=== PATIENT | male | born 1950 | race Caucasian/White ===

== ENCOUNTER → 2018-03-19 14:19 | Outpatient (CLI) | payer MEDICARE, OTHER ==
[2012-11-17 17:51] VITALS: BMI 39.0
[~2018-03-19 14:19] MED LIST: BACTRIM DS TABL1 TAB PO; CLARINEX-D 21 BOTTLE PO; COUMADIN5 MG PO; PRILOSEC20 MG PO; VOLTAREN100 GM TP
== END | disposition home or self-care (01) ==
LOC: D.CT 14:19
DX: R10.9 Unspecified abdominal pain (principal); K46.9 Unspecified abdominal hernia without obstruction or gangrene

== ENCOUNTER 2018-05-29 05:50 | Day surgery (SDC) | payer MEDICARE, OTHER ==
[2018-05-28 10:28] LABS: HEMATOCRIT 36.9 % (42.0-54.0); HEMOGLOBIN 12.3 g/dL (13.5-17.5); LYMPHOCYTES 30.6 % (15-50); MCH 27.9 pg (26.0-34.0); MCHC 33.3 g/dL (31.0-37.0); MCV 83.7 fL (80.0-100.0); MEAN PLATELET VOLUME 7.7 fL (7.4-10.4); NEUTROPHILS 57.8 % (40-80); PLATELET COUNT 265 10x3/uL (130-400); RBC 4.41 10x6/uL (4.20-6.10); RDW 12.9 % (11.5-14.5); WBC 4.4 10x3/uL (4.8-10.8)
[2018-05-28 10:38] LABS: ANION GAP 13.2 mmol/L (8-16); CALCIUM 8.5 mg/dL (8.5-10.1); CARBON DIOXIDE 27.3 mmol/L (21.0-32.0); CREATININE - SERUM 1.2 mg/dL (0.6-1.3); POTASSIUM - SERUM 4.5 mmol/L (3.5-5.1)
[~2018-05-29] VITALS: Ht 175.3 cm; Wt 136.5 kg
[~2018-05-29 05:50] MED LIST changes: +CLARITIN 10 MG10 MG PO; +OMEPRAZOLE40 MG PO; +VOLTAREN75 MG PO; +XALATAN 0.0052.5 ML EACH EYE
[2018-05-29 06:51] VITALS: BP 185/109; Ht 175.3 cm; Wt 136.5 kg
--- NOTE | 2018-05-29 08:54 | NUR ---
SCD'S NOT APPLIED, SKIN ON LOWER EXTREMITIES SHINY, RED, WITH OPEN SORES.
[2018-05-29] MEDS ORDERED: HYDROCODON-ACE1 EA10 PO (09:17)
--- NOTE | 2018-05-29 10:08 | NUR ---
0954 - PT RATES PAIN AT "6". PT PULSEOX 90-91 WITHOUT SUPPLEMENTAL, O2; D/C TO OUT PT PER ANESTHESIA
--- NOTE | 2018-05-29 10:55 | NUR ---
1035 BNC 2L/MIN SHANTANU'Amie
--- NOTE | 2018-05-29 11:11 | NUR ---
1005 PT HOLDING O2 SAT UP. PT ASKING FOR PAIN MEDICINE. STATES HIS PAIN IS STILL A 6.
--- NOTE | 2018-05-29 13:03 | NUR ---
1230 IV DC'D. CATHETER INTACT. NO BLEEDING AT SITE. BANDAID APPLIED.
--- NOTE | 2018-06-18 09:41 | OP ---
PATIENT NAME: NORMAN MONET MEDICAL RECORD: [id number] :50 LOCATION:[facility] ADMISSION DATE: SURGEON: CHRIS LAMBERT MD DATE OF OPERATION: 05/29/2018 PREOPERATIVE DIAGNOSES: 1. Recurrent ventral incisional hernia times 2. 2. Gastroesophageal reflux disease. 3. Morbid obesity with a body mass index of 44. POSTOPERATIVE DIAGNOSES: 1. Recurrent ventral incisional hernia times 2. 2. Gastroesophageal reflux disease. 3. Morbid obesity with a body mass index of 44. PROCEDURE: Ventral incisional hernia repair times 2 with 4.[address] mesh and 6.[address] mesh. SURGEON: Chris Lambert MD BOMB LOADER: Naty Kothari APRN REPORT OF PROCEDURE: The patient's abdomen was prepped and draped in sterile fashion. A longitudinal incision was made in the upper midline of the epigastrium overlying a small mass of tissue. Electrocautery was used to dissect through the subcutaneous tissue until we encountered a fat-containing hernia sac. This hernia sac was opened up and we were able to push this fatty content back into the abdominal cavity. There were actually 2 small hernia defects right next to each other and the bridge of fascia between these 2 were opened up. The total length of the hernia defect was about 1.5 cm. We freed up the fascia above and below. At this point, we inserted a 4.[address] mesh and sutured it down on all 4 sides using interrupted 0 Prolenes. The wound was then irrigated out with normal saline. We reapproximated the fascia transversely using running #1 PDS. We then approached the left lower quadrant where there was a large mass of tissue present. A transverse incision was made overlying this. Electrocautery was used to dissect through the subcutaneous tissue down to a fat-containing hernia sac. This hernia sac was opened up. We were eventually able to free up the hernia sac and then push the fatty contents back into the abdominal cavity. The hernia defect was about 3.5 cm in greatest diameter. We freed up the fascia above and below. We then inserted a 6.[address] mesh in an underlay fashion and sutured it down on all 4 sides using interrupted 0 Prolenes. We irrigated out the wound with normal saline and then closed the fascia transversely using a running #1 loop PDS. The wound was irrigated one last time and care was taken to assure there was no sign of any bleeding. At this point, subcutaneous tissues were reapproximated with interrupted 3-0 Vicryls and the skin incisions were closed with running subcutaneous 5-0 Monocryl. A total of 20 mL of 0.25% Marcaine with epinephrine was infused into the surrounding tissues. The wounds were dressed appropriately. COMPLICATIONS: None. CONDITION: Stable. ANESTHESIA: General endotracheal and local. OPERATIVE REPORT [id number] NORMAN MONET BLOOD LOSS: Minimal. TRANSINT:[id number] Voice Confirmation ID: [id number] DOCUMENT ID: [id number] CHRIS LAMBERT MD at 0941 CC: VANESA FUNEZ [id number] DICTATION DATE: 05/29/18921 NEWSPAPER CORRESPONDENT: 05/29/18 1117 [facility] 05/29/18 [facility] [address] [place] [address]
== END 2018-05-29 12:52 | disposition home or self-care (01) ==
LOC: D.OPS 05:50 → D.PAN 08:00 → D.OPS 08:00
PROVIDERS: Surgery
DX: K43.2 Incisional hernia without obstruction or gangrene (principal); K21.9 Gastro-esophageal reflux disease without esophagitis; E66.01 Morbid (severe) obesity due to excess calories; Z68.41 Body mass index [BMI] 40.0-44.9, adult; Z01.812 Encounter for preprocedural laboratory examination

== ENCOUNTER → 2018-09-01 07:30 | Outpatient (CLI) | payer MEDICARE, OTHER ==
[2018-05-29 06:51] VITALS: BMI 44.5
[~2018-09-01 07:30] MED LIST changes: +HYDROCODON-ACE1 EA10 PO
== END | disposition home or self-care (01) ==
LOC: D.NM 07:30
PROVIDERS: ATTEND Nurse Practitioner Family
DX: Z96.651 Presence of right artificial knee joint (principal)

== ENCOUNTER → 2018-09-03 16:35 | Outpatient (CLI) | payer MEDICARE, OTHER ==
[2018-05-29 06:51] VITALS: BMI 44.5
[2018-09-03 18:52] LABS: BASOPHILS 0.3 % (0-2); EOSINOPHILS 2.1 % (0-7); HEMATOCRIT 36.8 % (42.0-54.0); HEMOGLOBIN 12.2 g/dL (13.5-17.5); IMMATURE GRANULOCYTES 0.3 % (0-5); LYMPHOCYTES 23.4 % (15-50); MCH 27.4 pg (26.0-34.0); MCHC 33.2 g/dL (31.0-37.0); MCV 82.5 fL (80.0-100.0); MONOCYTES 8.8 % (2-11); NEUTROPHILS 65.1 % (40-80); RBC 4.46 10x6/uL (4.20-6.10); WBC 6.3 10x3/uL (4.8-10.8)
[2018-09-03 18:54] LABS: PLATELET COUNT 350 10x3/uL (130-400)
[2018-09-03 20:07] LABS: ERYTHROCYTE SEDIMENTATION RATE 62 mm/hr (0-20)
== END | disposition home or self-care (01) ==
LOC: D.LABREF 16:35
PROVIDERS: ATTEND Orthopaedic Surgery
DX: M25.561 Pain in right knee (principal)

== ENCOUNTER → 2018-09-07 07:09 | Outpatient (CLI) | payer MEDICARE, OTHER ==
[2018-05-29 06:51] VITALS: BMI 44.5
--- NOTE | ~2018-09-07 | HEMODYNAMI ---
PATIENT:NORMAN MONET MEDICAL RECORD: [id number] : 50 LOCATION:[facility] ADMISSION DATE: 09/07/18 Generatedon:09/07/20188:35 Patient name: NORMAN MONET Patient #: [id number] SSN: B: 1950 Date of study: 09/07/2018 Page: Of Hemodynamic Procedure Report Patient Data Patient Demographics Procedure consent was obtained First Name: NORMAN Gender: Male Last Name: TIERNEY : 1950 [facility] Initial: A Age: 68 year(s) Patient #: [id number] Race: Unknown Additional ID: [id number] Contact details Address: [address] [place] [place] [address] State: [place] City: [place] Zip code: [address] Past Medical History Allergies Allergen Reaction Date Comments Reported Other allergy 09/07/2018 latex, natural rubber Admission Admission Data Admission Date: 09/07/2018 Admission Time: 7:09 Procedure Procedure Types Cath Procedure Peripheral Cath Diagnostic Procedure Miscellaneous Aspiration/Injection (Joint) Procedure Description Procedure Date Procedure Date: 09/07/2018 Procedure Start Time: 8:21 Procedure Staff Name Function David Martin RT Scrub Johny Jensen MD Performing Physician Yi Mckenzie RN Nurse Darline Pringle RN Nurse SHAMIKA DENNIS RT Monitor Procedure Data Cath Procedure Fluoroscopy Diagnostic fluoroscopy Total fluoroscopy Time: 0.1 time: 0.1 min min Diagnostic fluoroscopy Total fluoroscopy dose: 1 dose: 1 mGy mGy Hemodynamics Rest Pre Cath Intra NCS Post Cath Procedure Log Time Note 8:12:15 SHAMIKA DENNIS RT (R) sent for patient. Start room use. 8:12:17 Time tracking: Regular hours (M-F 7:00 - 5:00) 8:12:25 Patient received from Outpatients to IR Alert and oriented. Tansferred to table in Supine position. 8:12:30 Correct patient and procedure confirmed by team. 8:12:32 Signed procedure consent form obtained from patient. 8:12:34 8:13:32 Pre-procedure instructions explained to patient. 8:14:09 Patient allergic to Other allergylatex, natural rubber 8:20:21 --------ALL STOP TIME OUT------ 8:20:21 Physician arrived 8:20:22 Final Timeout: patient, procedure, and site verified with staff and physician. All members of the team are in agreement. 8:20:32 Right knee site verified by team. 8:20:38 Sedation plan: Local Anesthetic Medication:Lidocaine 8:20:56 Full Disclosure recording started 8:20:56 Procedure started. 8:21:22 Local anesthetic to Right Knee with Lidocaine 1% by Johny Jensen MD.INITIAL ACCESS ONLY 8:21:25 SAFE-T PLUS MYELOGRAM TRAY opened to sterile field. 8:26:30 Procedure ended.(Physican Out) 8:26:46 Fluoroscopy time 00.10 minutes. 8:26:50 Fluoroscopy dose: 1 mGy 8:26:50 Flurop Dose total: 1 8:30:27 Insertion/operative site no bleeding no hematoma. 8:31:01 BANDAIDE APPLIED AND PT SENT HOME FLUID COLLECTED AND SENT TO LAB 8:32:06 Full Disclosure recording stopped Device Usage Item Name Manufacture Quantity Catalog Hospital Part Current Minimal Lot# / Number Charge Number Stock Stock Serial# Code SAFE-T CareFusion 1 [id number] PLUS MYELOGRAM TRAY Signature Audit [place] Stage Time Signature Unsigned Intra-Procedure 09/07/2018 David 8:35:07 AM Veronica RT (R) (CV) Signatures Monitor : SHAMIKA DENNIS RT Signature : Date : Time : [facility] [address] [place], [place] [id number]
[2018-09-07 09:13] LABS: PROTEIN - BODY FLUID 6.1 G/DL
[2018-09-07 10:07] LABS: NEUT - BF 93 %
== END | disposition home or self-care (01) ==
LOC: D.RAD 07:09
PROVIDERS: ATTEND Orthopaedic Surgery
DX: M25.561 Pain in right knee (principal)

== ENCOUNTER → 2018-09-11 11:07 | Outpatient (CLI) | payer MEDICARE, OTHER ==
[2018-05-29 06:51] VITALS: BMI 44.5
== END | disposition home or self-care (01) ==
LOC: D.LABREF 11:07
PROVIDERS: ATTEND Orthopaedic Surgery
DX: M17.11 Unilateral primary osteoarthritis, right knee (principal); Z11.8 Encounter for screening for other infectious and parasitic diseases

== ENCOUNTER 2018-09-11 12:53 | Inpatient (IN) | payer MEDICARE, OTHER ==
--- NOTE | ~2018-09-11 | HEMODYNAMI ---
PATIENT:NORMAN MONET MEDICAL RECORD: [id number] : 50 LOCATION:[facility] ADMISSION DATE: 09/22/18 Generatedon:09/16/201813:51 Patient name: NORMAN MONET Patient #: [id number] SSN: B: 1950 Date of study: 09/16/2018 Page: Of Hemodynamic Procedure Report Patient Data Patient Demographics Procedure consent was obtained First Name: NORMAN Gender: Male Last Name: TIERNEY : 1950 [facility] Initial: A Age: 68 year(s) Patient #: [id number] Race: Unknown Additional ID: [id number] Contact details Address: [address] [place] [address] State: [place] City: [place] Zip code: [address] Past Medical History Allergies Allergen Reaction Date Comments Reported Other allergy 09/07/2018 latex, natural rubber Other allergy 09/16/2018 LATEX Admission Admission Data Admission Date: 09/22/2018 Admission Time: 10:00 Procedure Procedure Types Cath Procedure Peripheral Cath Diagnostic Procedure Miscellaneous Aspiration/Injection (Joint) Procedure Description Procedure Date Procedure Date: 09/16/2018 Procedure Start Time: 13:40 Procedure Staff Name Function Johny Jensen MD Performing Physician David Martin RT Monitor Darline Pringle RN Nurse Procedure Data Cath Procedure Fluoroscopy Diagnostic fluoroscopy Total fluoroscopy Time: 0.1 time: 0.1 min min Diagnostic fluoroscopy Total fluoroscopy dose: 1 dose: 1 mGy mGy Hemodynamics Rest Pre Cath Intra NCS Post Cath Procedure Log Time Note 13:33:10 David Martin RT (R) (CV) sent for patient. Start room use. 13:33:14 Time tracking: Regular hours (M-F 7:00 - 5:00) 13:33:20 Patient received from Outpatients to IR Alert and oriented. Tansferred to table in Supine position. 13:33:21 Correct patient and procedure confirmed by team. 13:33:23 Signed procedure consent form obtained from patient. 13:33:24 ECG and BP/O2 sat monitors applied to patient. 13:33:25 Full Disclosure recording started 13:33:26 - 13:33:33 Pre-procedure instructions explained to patient. 13:33:33 Pre-op teaching completed and patient verbalized understanding. 13:33:35 Family in waiting room. 13:33:57 Patient allergic to Other allergyLATEX 13:34:03 Is patient on blood thinner?No 13:38:36 Right Knee was prepped with betadine and draped in sterile fashion. 13:40:09 Physician arrived 13:40:09 --------ALL STOP TIME OUT------ 13:40:13 Final Timeout: patient, procedure, and site verified with staff and physician. All members of the team are in agreement. 13:40:23 Right KNEE site verified by team. 13:40:45 Sedation plan: Local Anesthetic Medication:Lidocaine 13:40:53 Procedure started. 13:40:59 Local anesthetic to Right Knee with Lidocaine 1% by Johny Jensen MD.INITIAL ACCESS ONLY 13:49:04 Procedure ended.(Physican Out) 13:49:45 SAFE-T PLUS MYELOGRAM TRAY opened to sterile field. 13:50:19 Fluoroscopy time 00.10 minutes. 13:50:21 Fluoroscopy dose: 1 mGy 13:50:21 Flurop Dose total: 1 13:50:58 BANDAIDE APPLIED SITE STABLE FLUID SENT COLLECTED AND SENT TO LAB Device Usage Item Name Manufacture Quantity Catalog Hospital Part Current Minimal Lot# / Number Charge Number Stock Stock Serial# Code SAFE-T CareFusion 1 [id number] PLUS MYELOGRAM TRAY Signature Audit [place] Stage Time Signature Unsigned Intra-Procedure 09/16/2018 David 1:51:23 PM Veronica RT (R) (CV) Signatures Monitor : David Signature : Veronica RT Date : Time : [facility] [address] [place] [address]
[2018-09-17] MEDS ORDERED: LISINOPRIL10 MG PO (09:59)
[2018-09-17 11:14] LABS: ANION GAP 11.4 mmol/L (8-16); CALCIUM 9.3 mg/dL (8.5-10.1); CARBON DIOXIDE 28.7 mmol/L (21.0-32.0); CREATININE - SERUM 1.4 mg/dL (0.6-1.3); POTASSIUM - SERUM 4.1 mmol/L (3.5-5.1)
[2018-09-17 11:21] LABS: BASOPHILS 0.3 % (0-2); EOSINOPHILS 1.7 % (0-7); HEMATOCRIT 37.5 % (42.0-54.0); HEMOGLOBIN 12.3 g/dL (13.5-17.5); IMMATURE GRANULOCYTES 0.1 % (0-5); LYMPHOCYTES 26.5 % (15-50); MCH 27.5 pg (26.0-34.0); MCHC 32.8 g/dL (31.0-37.0); MCV 83.7 fL (80.0-100.0); MEAN PLATELET VOLUME 8.7 fL (7.4-10.4); MONOCYTES 7.5 % (2-11); NEUTROPHILS 63.9 % (40-80); PLATELET COUNT 287 10x3/uL (130-400); RBC 4.48 10x6/uL (4.20-6.10); RDW 14.4 % (11.5-14.5)
[2018-09-17 11:23] LABS: APTT 31.2 SECONDS (22.8-39.4); INR 1.12 (0.85-1.17); PROTIME 13.9 SECONDS (11.6-15.0)
[2018-09-17 11:38] LABS: APPEARANCE CLEAR (CLEAR); BILIRUBIN NEGATIVE (NEGATIVE); COLOR YELLOW (YELLOW); GLUCOSE 50 mg/dL (NEGATIVE); KETONE NEGATIVE (NEGATIVE); NITRITE NEGATIVE (NEGATIVE); PROTEIN NEGATIVE (NEGATIVE); SPECIFIC GRAVITY 1.015 (1.005-1.020); UROBILINOGEN NORMAL (NORMAL)
[2018-09-22 12:23] VITALS: BP 148/71
[2018-09-23] VITALS (7 sets, daily range): BP systolic 119–143; BP diastolic 50–72
--- NOTE | 2018-09-23 04:20 | NUR ---
I have reviewed this patient and I concur with the Shift Assessment completed by the Licensed Practical Nurse today this shift.
[2018-09-23 06:43] LABS: HEMATOCRIT 30.8 % (42.0-54.0); HEMOGLOBIN 10.5 g/dL (13.5-17.5); MCH 28.5 pg (26.0-34.0); MCHC 34.1 g/dL (31.0-37.0); MCV 83.5 fL (80.0-100.0); MEAN PLATELET VOLUME 8.9 fL (7.4-10.4); RBC 3.69 10x6/uL (4.20-6.10); RDW 14.6 % (11.5-14.5)
[2018-09-23 07:50] LABS: ANION GAP 12.8 mmol/L (8-16); CALCIUM 8.5 mg/dL (8.5-10.1); CARBON DIOXIDE 25.8 mmol/L (21.0-32.0); CREATININE - SERUM 1.4 mg/dL (0.6-1.3); POTASSIUM - SERUM 4.6 mmol/L (3.5-5.1)
--- NOTE | 2018-09-23 08:48 | OP ---
PATIENT NAME: NORMAN MONET MEDICAL RECORD: [id number] :50 LOCATION: D.2224 ADMISSION DATE:09/22/18 SURGEON: JOHNY STONE DO DATE OF OPERATION: 09/22/2018 PROCEDURE PERFORMED: Right knee explant of total knee with irrigation, debridement and placement of antibiotic spacer. PREOPERATIVE DIAGNOSIS: Chronic infected right total knee. POSTOPERATIVE DIAGNOSIS: Chronic infected right total knee. INDICATIONS: Mr. Monet is a 68-year-old male who had a total knee done approximately 13 years ago after having a severe tibial plateau fracture. He said he has been having pain ever since and never really went away. He was worked up for infection as ESR and CRP were elevated and got an aspirate of his knee, which grew out Staph hominis. We repeated just to be sure and then he grew out Staph the same bug, the second time. Knowing that knowing how long it had been in, I had a discussion with him saying we could play it safe and do a two stage or a single stage will be more risky. He said it is left to me, so I decided to do a two stage revision on him due to the chronicity of the infection. He was okay with that plan. He was aware of the need for IV antibiotics and also the revision, possibly in 6 weeks after an aspirate done being off antibiotics. He was aware of all those things as well as the risk of blood clots, and even and signed the consent. SURGEON: Johny Stone DO DESCRIPTION OF THE PROCEDURE: The patient was given a block by anesthesia in the preoperative area. He taken to the operative suite, laid in supine position. Right lower extremity was prepped and draped in sterile fashion. Timeout was performed, everyone was in agreeance of the correct side, site, patient and procedure. Incision then marked out over the old incision over the medial aspect of the knee and curved superior and inferior. The timeout had been performed. Everyone was in agreeance of the correct side, site, patient and procedure and then the incision was marked out and covered in Ioban. Incision was then made with a 10 blade scalpel down to the capsule. Capsule was cleared off and then a medial parapatellar approach was used and this was opened up as soon as the capsule was entered. Purulent fluid came out of the knee. This was cultured with 3 different sets of cultures. The knee capsule was then opened and the poly was taken out. The medial gutter was then established taking out some synovium and the femur was exposed more. The lateral gutter was then established taking out synovium. Then, a flexible osteotome was used around the femur to loosen it and it was removed. The same process was done with the tibia and it was removed. Excess cement was removed and then the poly on the patella was removed as well and Bactisure was then used to irrigate the knee and then 3 liters normal saline was used and then another 2 liters normal saline after that towards the end of procedure. The antibiotic spacer was then molded for the tibia and that the femur was initially used. Tibia was then molded and the femur was initially size as a 7, it was just too big, so that the mold was bumped down to a 65. We used the cement with tobramycin and vancomycin powder and the cement on both the femur and the tibia. Once we got the right molds, this was placed on the knee. Knee was placed in extension. The knee was thoroughly irrigated and the capsule was closed with #2 Ethibond in ldfbon-hx-xupjj fashion and the skin was closed with 2-0 Vicryl in an inverted OPERATIVE REPORT [id number] TIERNEY,NORMAN A interrupted fashion and then a ZipLine was placed on the knee. Adaptic, 4 x 4s, ABD, Webril and Pradip wrap were then placed on the knee. CARA hose stocking placed up to the knee. The patient was then placed in knee immobilizer and taken to recovery in stable condition. Blood loss was approximately 200 mL. COMPLICATIONS: None. TRANSINT:[id number] Voice Confirmation ID: [id number] DOCUMENT ID: [id number] JOHNY STONE DO at 0848 CC: [id number] DICTATION DATE: 09/22/181841 HEEL CEMENTER MACHINE: 09/22/182213 [facility] [address] [place] [address]
[2018-09-23 12:29] LABS: % SATURATION 11 % (15-55); IRON 24 ug/dl (35-150); TOTAL IRON BIND CAPACITY 212 ug/dl (260-445); UNSAT IRON BIND CAPACITY 188 ug/dl (150-375)
--- NOTE | 2018-09-23 15:40 | MORECARE ---
CASE MANAGEMENT DISCHARGE SUMMARY PATIENT: NORMAN MONET UNIT: [id number] ADM DATE: 09/22/18 AGE: 68 : 50 SEX: M ROOM/BED: D.2224 AUTHOR: BILL RODRIGUEZ PHYSICIAN: REFERRING PHYSICIAN: SHAGGY STONE DO DATE OF SERVICE: 09/23/18 Discharge Plan Patient Name: NORMAN MONET [facility] [facility] 1950 Planned Disposition: Custodial Facility Anticipated Discharge Date: Discharge Date: Expected LOS: Initial Reviewer: [email or web address] Initial Review Date: 09/23/2018 Generated: 09/23/18 4:40 pm External Providers External Provider: [facility] Next Contact Date: Service Request Date: Service Type: Resolution: Reviewer: Comments: Patient Name: NORMAN MONET Page [phone] at 1540 All edits/amendments must be made on the electronic document DICTATION DATE: 09/23/18 1540 FOLDER OPERATOR: MIQUEL 09/23/18 1540 RPT#: [id number] DC DATE: STATUS: ADM IN [facility] [address] [place] [address] END OF REPORT
--- NOTE | 2018-09-23 15:49 | MORECARE ---
CASE MANAGEMENT DISCHARGE SUMMARY PATIENT: NORMAN MONET UNIT: [id number] ADM DATE: 09/22/18 AGE: 68 : 50 SEX: M ROOM/BED: D.2224 AUTHOR: JENNIFER,DOC PHYSICIAN: REFERRING PHYSICIAN: SHAGGY STONE DO DATE OF SERVICE: 09/23/18 Discharge Plan Patient Name: NORMAN MONET Facility: [facility]:[place] : 1950 Planned Disposition: [facility] Facility Anticipated Discharge Date: Discharge Date: Expected LOS: Initial Reviewer: [email or web address] Initial Review Date: 09/23/2018 Generated: 09/23/18 4:49 pm Comments DCP- Discharge Planning Updated by [id number]: Mary Kate Almaraz on 09/23/18 2:[address] Patient Name: NORMAN MONET Admission Status: Elective Accout number: [id number] Admission Date: 09-22-2018 : 1950 Admission Diagnosis: Attending: SHAGGY STONE Current LOS: 1 Anticipated DC Date: Planned Disposition: [facility] Facility Primary Insurance: MEDICARE A & B Discharge Planning Comments: CM met with patient to discuss discharge planning/needs, he is alone in the room. He lives with his in a one story home. He states that he no longer can drive because of his knee. He will need IV antibiotics at home for an extended period of time. He does not have a prescription plan. He states he uses [facility] to get his medications for economical reasons. I discussed the availability of inpatient rehab, SNF and home health. I did inform him that I could holt the antibiotics from an infusion company before he makes a decision and he states "no, I can't afford it." He states [facility] YOJANA signed. I called Maria De Jesus at [facility] and clinical faxed. CM will continue to follow and assist with discharge planning/needs. Cyber Threat Analyst: Mary Kate Almaraz DCPIA - Discharge Planning Initial Assessment Updated by [email or web address]: Mary Kate Almaraz on 09/23/18 3:41 pm * Is the patient Alert and Oriented? Yes * How many steps to enter\\exit or inside your home? 0/0 * PCP Dr. Landon * Pharmacy [facility] * Preadmission Environment Home with Family * ADLs Partial Dependent * Partial ADLs (Assistance needed) Ambulation * Equipment Bedside Commode Crutch Walker * Other Equipment Has a CPM, but states they are going to take it back since he can not use it at this time. * List name and contact numbers for known caregivers / representatives who currently or will assist patient after discharge: Roxanne Monet - spouse - [phone] * Verbal permission to speak to the caregivers and representatives has been obtained from the patient. Yes * Community resources currently utilized None * Additional services required to return to the preadmission environment? Yes * Can the patient safely return to the preadmission environment? Yes * Has this patient been hospitalized within the prior 30 days at any hospital? No Coverage Notice Reviewer: [email or web address] Barrie Almaraz Notice Issued Date-Time: 09/23/2018 15:47 Notice Type: Patient Choice Letter Notice Delivered To: Patient Relationship to Patient: Lease Examiner Name: Delivery Method: HAND - Hand Delivered Dee Days: Prior Verbal Notification: Recipient Understood Notice: Yes Recipient Signature: Yes Med Rec Note Co-signed by Attending: Coverage Notice Comment: YOJANA for [facility] Last DP export: 09/23/18 2:40 pm Patient Name: NORMAN MONET Page [id number] at 1549 All edits/amendments must be made on the electronic document DICTATION DATE: 09/23/188 BULK TANK DRIVER: MIQUEL 09/23/18 1548 RPT#: [id number] DC DATE: STATUS: ADM IN [facility] [address] [place] [address] END OF REPORT
[2018-09-24 03:15] VITALS: BP 141/72
[2018-09-24 04:00] VITALS: BP 152/72
[2018-09-24 04:22] LABS: BASOPHILS 0.1 % (0-2); EOSINOPHILS 0.3 % (0-7); HEMOGLOBIN 9.2 g/dL (13.5-17.5); IMMATURE GRANULOCYTES 0.3 % (0-5); LYMPHOCYTES 16.5 % (15-50); MCH 27.1 pg (26.0-34.0); MCHC 32.9 g/dL (31.0-37.0); MCV 82.6 fL (80.0-100.0); MEAN PLATELET VOLUME 8.6 fL (7.4-10.4); MONOCYTES 14.5 % (2-11); NEUTROPHILS 68.3 % (40-80); PLATELET COUNT 239 10x3/uL (130-400); RBC 3.39 10x6/uL (4.20-6.10); RDW 14.6 % (11.5-14.5); WBC 7.8 10x3/uL (4.8-10.8)
[2018-09-24 04:32] LABS: ANION GAP 11.4 mmol/L (8-16); C-REACTIVE PROTEIN 29.5 mg/dL (0.0-0.9); CALCIUM 8.5 mg/dL (8.5-10.1); CARBON DIOXIDE 26.6 mmol/L (21.0-32.0); CREATININE - SERUM 1.1 mg/dL (0.6-1.3)
[2018-09-24 05:16] LABS: ERYTHROCYTE SEDIMENTATION RATE 48 mm/hr (0-20)
--- NOTE | 2018-09-24 05:38 | NUR ---
I have reviewed this patient and I concur with the Shift Assessment completed by the Licensed Practical Nurse today this shift.
--- NOTE | 2018-09-24 07:50 | NUR ---
PT RESTING IN BED. NO ACUTE DISTRESS NOTED. REPORTS PAIN 10/10 TO RIGHT LOWER EXTREMITY. DRESSING INTACT, WITH LEG IMMOBILIZER IN PLACE. PAIN MEDICATIONS TO BE ADMINITERED PER MD ORDERS. IV TO LEFT FOREARM WITH 1/2 NS @ 50ML/HR INFUSING VIA PUMP. SITE WITHOUT REDNESS OR EDEMA. DENIES FURTHER NEEDS AT THIS TIME. CL WITHIN REACH. ENCOURAGED TO CALL WITH NEEDS. CONTINUE POC
--- NOTE | 2018-09-24 08:25 | NUR ---
URINE SPECIMEN OBTAINED AND TAKEN TO LAB
[2018-09-24 09:05] LABS: APPEARANCE CLEAR (CLEAR); BILIRUBIN NEGATIVE (NEGATIVE); COLOR DK YELLOW (YELLOW); GLUCOSE 100 mg/dL (NEGATIVE); KETONE NEGATIVE (NEGATIVE); NITRITE NEGATIVE (NEGATIVE); PROTEIN TRACE mg/dL (NEGATIVE); SPECIFIC GRAVITY 1.015 (1.005-1.020)
[2018-09-24 09:06] LABS: AMORPHOUS SEDIMENT <1+ /lpf (NONE SEEN); BACTERIA FEW /hpf (NONE SEEN); EPITHELIAL CELLS RARE /hpf (0-5); GRANULAR CAST RARE /lpf (NONE SEEN); MUCUS <1+ /lpf (NONE SEEN); RED CELLS - URINE NONE SEEN /hpf (0-5); WHITE CELLS - URINE NSEEN /hpf (0-5)
[2018-09-24 09:29] VITALS: BP 138/67
[2018-09-24 13:35] VITALS: BP 111/60
[2018-09-24 18:07] VITALS: BP 126/62
--- NOTE | 2018-09-24 19:00 | NUR ---
REPORT RECEIVED AND CARE OF PT ASSUMED. PT LYING IN HIGH DURÁN'S POSITION WATCHING TV. LEFT PICC LINE PATENT WITH 1/2 NS INFUSING AT 50 ML/HR. REMOVED PERIPHERAL IV TO LEFT AC PER PT REQUEST WITH CATHETER TIP INTACT. WILL MONITOR FOR NEEDS.
[2018-09-24 20:00] VITALS: BP 92/62
--- NOTE | 2018-09-24 20:17 | NUR ---
HS MEDICATIONS GIVEN TO INCLUDE OXY 10 PO, TORADOL IVP AND VISTARIL PER PRN ORDERS FOR PAIN / SLEEP. WILL MONITOR FOR EFFECTIVENESS.
--- NOTE | 2018-09-24 22:50 | NUR ---
COLLECTED URINE FOR CULTURE AND DELIVERED TO LAB.
--- NOTE | 2018-09-24 23:39 | NUR ---
PT RESTING QUIETLY IN MID DURÁN'S POSITION WITH EYES CLOSED AND EASY RESPIRATIONS. WILL CONTINUE TO MONITOR FOR NEEDS.
[2018-09-25] VITALS: BP 113/62
--- NOTE | 2018-09-25 03:49 | NUR ---
GAVE OXY 10 PO AND VISTARIL 50 PO FOR C/O PAIN AT LEVEL 6/10. WILL MONITOR FOR EFFECTIVENESS.
[2018-09-25 04:00] VITALS: BP 127/68
[2018-09-25 06:13] LABS: FOLATE (FOLIC ACID) - SERUM 5.4 ng/mL (>3.0)
[2018-09-25 07:00] LABS: ANION GAP 10.9 mmol/L (8-16); CALCIUM 8.1 mg/dL (8.5-10.1); CARBON DIOXIDE 26.8 mmol/L (21.0-32.0); CREATININE - SERUM 1.2 mg/dL (0.6-1.3); POTASSIUM - SERUM 3.7 mmol/L (3.5-5.1)
[2018-09-25 07:06] LABS: BASOPHILS 0.3 % (0-2); EOSINOPHILS 1.8 % (0-7); HEMATOCRIT 26.2 % (42.0-54.0); HEMOGLOBIN 8.5 g/dL (13.5-17.5); IMMATURE GRANULOCYTES 0.3 % (0-5); LYMPHOCYTES 21.9 % (15-50); MCH 27.2 pg (26.0-34.0); MCHC 32.4 g/dL (31.0-37.0); MONOCYTES 14.9 % (2-11); NEUTROPHILS 60.8 % (40-80); PLATELET COUNT 247 10x3/uL (130-400); RBC 3.12 10x6/uL (4.20-6.10); RDW 14.7 % (11.5-14.5); WBC 7.1 10x3/uL (4.8-10.8)
--- NOTE | 2018-09-25 08:30 | NUR ---
ASSESSMENT COMPLETE, VS STABLE. NO COMPLAINTS OR SIGNS OF DISTRESS. CALL LIGHT WITHIN REACH.
[2018-09-25 09:39] VITALS: BP 129/64
[2018-09-25 13:32] VITALS: BP 130/64
--- NOTE | 2018-09-25 17:00 | NUR ---
PATIENT STOOL SAMPLE SENT TO LAB AT THIS TIME.
[2018-09-25 17:07] VITALS: BP 128/62
--- NOTE | 2018-09-25 18:45 | NUR ---
PATIENT IN BED WITH IV INTACT. NO COMPLAINTS OR SIGNS OF DISTRESS. CALL LIGHT WITHIN REACH.
--- NOTE | 2018-09-25 19:00 | NUR ---
REPORT RECEIVED AND CARE OF PT ASSUMED. LEFT PICC LINE PATENT WITH 1/2 NS INFUSING AT 50 ML / HR. RIGHT LEG IMMOBILIZER IN PLACE. WILL MONITOR FOR NEEDS.
[2018-09-25 19:58] VITALS: BP 120/60
--- NOTE | 2018-09-25 21:00 | NUR ---
ASSISTED UP TO BSC TO HAVE LARGE BM. PT PIVOTS WELL ON LEFT LEG TO PREVENT WT BEARING ON RIGHT LEG. POSITIONED BACK IN BED FOR COMFORT.
--- NOTE | 2018-09-25 21:12 | NUR ---
HS MEDICATIONS GIVEN TO INCLUDE TORADOL AND BENADRYL FOR PAIN AND SLEEP. WILL MONITOR FOR EFFECTIVENESS.
[2018-09-26] VITALS: BP 116/57
--- NOTE | 2018-09-26 01:30 | NUR ---
GAVE OXY 10 PO AND VISTARIL 50 MG PO FOR C/O PAIN AT LEVEL 7/10. WILL MONITOR FOR EFFECTIVENESS.
--- NOTE | 2018-09-26 01:30 | NUR ---
CHANGED ALL IV TUBING AND LABELED WITH NEXT CHANGE DATE.
[2018-09-26 04:00] VITALS: BP 114/53
[2018-09-26 05:30] LABS: BASOPHILS 0.3 % (0-2); EOSINOPHILS 2.6 % (0-7); HEMATOCRIT 24.2 % (42.0-54.0); HEMOGLOBIN 7.9 g/dL (13.5-17.5); IMMATURE GRANULOCYTES 0.3 % (0-5); LYMPHOCYTES 25.4 % (15-50); MCH 27.1 pg (26.0-34.0); MCHC 32.6 g/dL (31.0-37.0); MCV 83.2 fL (80.0-100.0); MEAN PLATELET VOLUME 8.6 fL (7.4-10.4); MONOCYTES 12.9 % (2-11); NEUTROPHILS 58.5 % (40-80); PLATELET COUNT 266 10x3/uL (130-400); RBC 2.91 10x6/uL (4.20-6.10); RDW 14.5 % (11.5-14.5); WBC 6.8 10x3/uL (4.8-10.8)
[2018-09-26 05:53] LABS: ANION GAP 10.7 mmol/L (8-16); CALCIUM 8.1 mg/dL (8.5-10.1); CARBON DIOXIDE 26.1 mmol/L (21.0-32.0); CREATININE - SERUM 1.3 mg/dL (0.6-1.3); POTASSIUM - SERUM 3.8 mmol/L (3.5-5.1)
--- NOTE | 2018-09-26 08:00 | NUR ---
ASSESSMENT PER FLOW SHEET. PT IS WITHOUT DISTRESS.CALL LIGHT IN REACH
[2018-09-26 08:09] VITALS: BP 152/68
[2018-09-26 12:12] VITALS: BP 110/49
--- NOTE | 2018-09-26 14:00 | NUR ---
PT SAID HE DOES NOT WANT BLOOD TRANSFUSION. STATES HE SPOKE WITH DR. STNOE AND IT WAS AGREED THAT UNLESS HIS LAB DROPS BELOW 7 HE WILL NOT RECIEVE BLOOD.
[2018-09-26 16:22] VITALS: BP 123/51
--- NOTE | 2018-09-26 18:37 | NUR ---
REMAINS WITHOUT CHANGE FROM INTITIAL SHIFT ASSESSMENT.CONT PLAN OF CARE
--- NOTE | 2018-09-26 19:00 | NUR ---
REPORT RECEIVED AND CARE OF PT ASSUMED. PT LYING IN HIGH DURÁN'S POSITION WATCHING TV. LEFT PICC LINE PATENT WITH 1/2 NS INFUSING AT 50 ML/ HR. RIGHT LEG IMMOBILIZER IN PLACE. WILL MONITOR FOR NEEDS.
[2018-09-26 20:00] VITALS: BP 106/47
--- NOTE | 2018-09-26 20:52 | NUR ---
HS MEDICATIONS GIVEN TO INCLUDE OXY 10 MG PO AND VISTARIL 50 MG PO FOR PAIN. PT DECLINED MIRALAX TONIGHT HE HAD LOOSE STOOLS EARLIER TODAY. WILL CONTINUE TO MONITOR FOR NEEDS.
[2018-09-27] VITALS: BP 110/56
--- NOTE | 2018-09-27 00:58 | NUR ---
PT RESTING IN HIGH DURÁN'S POSITION WITH EYES CLOSED AND EASY RESPIRATIONS. WILL CONTINUE TO MONITOR FOR NEEDS.
--- NOTE | 2018-09-27 01:34 | NUR ---
PLACED EGGCRATE FOAM MATTRESS PAD ON BED TO RELEIVE PRESSURE ON BUTTOCKS. APPLIED KHLOE'S PASTE ON REDNESS ON BUTTOCKS. WILL CONTINUE TO MONITOR FOR NEEDS.
[2018-09-27 04:00] VITALS: BP 120/53
--- NOTE | 2018-09-27 04:15 | NUR ---
JINA BLOOD FROM PICC LINE AND DELIVERED TO LAB FOR AM LABS.
[2018-09-27 04:34] LABS: BASOPHILS 0.4 % (0-2); EOSINOPHILS 4.5 % (0-7); HEMATOCRIT 23.4 % (42.0-54.0); HEMOGLOBIN 7.7 g/dL (13.5-17.5); IMMATURE GRANULOCYTES 0.3 % (0-5); LYMPHOCYTES 19.9 % (15-50); MCH 27.5 pg (26.0-34.0); MCHC 32.9 g/dL (31.0-37.0); MCV 83.6 fL (80.0-100.0); MEAN PLATELET VOLUME 8.5 fL (7.4-10.4); MONOCYTES 12.2 % (2-11); NEUTROPHILS 62.7 % (40-80); PLATELET COUNT 272 10x3/uL (130-400); RDW 14.5 % (11.5-14.5); WBC 7.2 10x3/uL (4.8-10.8)
[2018-09-27 04:36] LABS: ANION GAP 8.9 mmol/L (8-16); CALCIUM 7.9 mg/dL (8.5-10.1); CARBON DIOXIDE 27.3 mmol/L (21.0-32.0); CREATININE - SERUM 1.3 mg/dL (0.6-1.3); POTASSIUM - SERUM 4.2 mmol/L (3.5-5.1)
--- NOTE | 2018-09-27 07:20 | NUR ---
DENIES NEEDS.CALL LIGHT IN REACH
[2018-09-27 09:25] VITALS: BP 128/53
[2018-09-27 13:00] VITALS: BP 148/67
[2018-09-27 18:20] VITALS: BP 120/44
--- NOTE | 2018-09-27 18:29 | NUR ---
REMAINS WITHOUT CHANGE. CONT PLAN OF CARE
--- NOTE | 2018-09-27 19:00 | NUR ---
REPORT RECEIVED AND CARE OF PT ASSUMED. PT LYING IN HIGH DURÁN'S POSITION WITH EYES CLOSED AND UNLABORED BREATHING. LEFT PICC PATENT WITH 1/2 NS INFUSING AT 50 ML / HR. IMMOBILIZER IN PLACE ON RIGHT LEG. WILL MONITOR FOR NEEDS.
[2018-09-27 20:00] VITALS: BP 149/57
--- NOTE | 2018-09-27 21:09 | NUR ---
HS MEDICATIONS GIVEN TO INCLUDE BENADRYL IVP 25 MG PER REQUEST FOR SLEEP / ITCHING. REFUSED MIRALAX AT THIS TIME HE HAS HAD LOOSE STOOLS TODAY. WILL CONTINUE TO MONITOR FOR NEEDS.
[2018-09-28] VITALS: BP 132/52
--- NOTE | 2018-09-28 00:09 | NUR ---
GAVE OXY 10 MG PO AND VISTARIL 50 MG PO PER REQUEST FOR PAIN AT LEVEL 8/10. WILL MONITOR FOR EFFECTIVENESS.
[2018-09-28 04:00] VITALS: BP 133/76
[2018-09-28 07:10] LABS: BASOPHILS 0.4 % (0-2); EOSINOPHILS 5.2 % (0-7); HEMATOCRIT 24.9 % (42.0-54.0); HEMOGLOBIN 8.1 g/dL (13.5-17.5); IMMATURE GRANULOCYTES 0.4 % (0-5); LYMPHOCYTES 18.4 % (15-50); MCH 27.5 pg (26.0-34.0); MCHC 32.5 g/dL (31.0-37.0); MCV 84.4 fL (80.0-100.0); MEAN PLATELET VOLUME 8.7 fL (7.4-10.4); MONOCYTES 12.8 % (2-11); NEUTROPHILS 62.8 % (40-80); RBC 2.95 10x6/uL (4.20-6.10); RDW 14.9 % (11.5-14.5); WBC 7.1 10x3/uL (4.8-10.8)
--- NOTE | 2018-09-28 07:15 | NUR ---
PT RESTING IN BED, EYES OPEN. C/O SORE THROAT. NO S/S OF ACUTE DISTRESS NOTED. ALERT AND ORIENTED. POD #6 HARDWARE REVISION, TOE TOUCH ONLY. LEFT UPPER ARM PICC, 1/2 NS INFUSING @ 50ML/HR. SITE PATENT WITHOUT REDNESS OR SWELLING. POSSIBLE DISCHARGE TODAY. PT DENIES ANYTHING FURTHER AT THIS TIME. CALL LIGHT IN REACH. WILL CONTINUE TO MONITOR.
[2018-09-28 07:25] LABS: PLATELET COUNT 338 10x3/uL (130-400)
[2018-09-28 07:35] LABS: ANION GAP 11.6 mmol/L (8-16); CALCIUM 8.5 mg/dL (8.5-10.1); CARBON DIOXIDE 25.4 mmol/L (21.0-32.0); CREATININE - SERUM 1.2 mg/dL (0.6-1.3)
[2018-09-28] MEDS ORDERED: ELIQUIS2.5 MG PO (08:41)
[2018-09-28] MEDS ORDERED: VANCOMYCIN 1.5 GM/NS IV (08:41)
[2018-09-28] MEDS ORDERED: OXYCODONE HCL5 M1 PO (08:42)
[2018-09-28] MEDS ORDERED: VISTARIL50 MG PO (08:42)
[2018-09-28 08:45] VITALS: BP 136/60
--- NOTE | 2018-09-28 10:57 | NUR ---
I have reviewed this patient and I concur with the Shift Assessment completed by the Licensed Practical Nurse today this shift.
--- NOTE | 2018-09-28 11:05 | MORECARE ---
CASE MANAGEMENT DISCHARGE SUMMARY PATIENT: NORMAN MONET UNIT: [id number] ADM DATE: 09/22/18 AGE: 68 : 50 SEX: M ROOM/BED: D.2224 AUTHOR: BILL RODRIGUEZ PHYSICIAN: REFERRING PHYSICIAN: SHAGGY STONE DO DATE OF SERVICE: 09/28/18 Discharge Plan Patient Name: NORMAN MONET Facility: [facility]:[place] : 1950 Planned Disposition: Custodial Facility Anticipated Discharge Date: Discharge Date: Expected LOS: Initial Reviewer: [email or web address] Initial Review Date: 09/23/2018 Generated: 09/28/18 12:05 pm Comments DCP- Discharge Planning Updated by [id number]: Mary Kate Redmanvince on 09/28/18 10:[address] Patient Name: NORMAN MONET Encounter No: [id number] : 1950 Primary Insurance: MEDICARE A & B Anticipated DC Date: Planned Disposition: Custodial Facility External Planned Provider: : DCP follow-up note: Patient and family in agreement with discharge plan. No changes to plan. He will be going to a skilled bed at [facility]. I have called and spoke to Maria De Jesus, informed Maria De Jesus that his weight is 299# for a large wheelchair with still cleaner tube on right leg. He will be picked up at 1:45. Clinical faxed to [facility]. Case management will follow and assist as needed. Mary Kate Almaraz DCP- Discharge Planning Updated by [email or web address]: Mary Kate Redmanvince on 09/23/18 2:[address] Patient Name: NORMAN MONET Admission Status: Elective Accout number: [id number] Admission Date: 09-22-2018 : 1950 Admission Diagnosis: Attending: SHAGGY STONE Current LOS: 1 Anticipated DC Date: Planned Disposition: Custodial Facility Primary Insurance: MEDICARE A & B Discharge Planning Comments: CM met with patient to discuss discharge planning/needs, he is alone in the room. He lives with his in a one story home. He states that he no longer can drive because of his knee. He will need IV antibiotics at home for an extended period of time. He does not have a prescription plan. He states he uses [facility] to get his medications for economical reasons. I discussed the availability of inpatient rehab, SNF and home health. I did inform him that I could holt the antibiotics from an infusion company before he makes a decision and he states "no, I can't afford it." He states he would like to go to [facility]. YOJANA signed. I called Maria De Jesus at [facility] and clinical faxed. CM will continue to follow and assist with discharge planning/needs. Digital Content Coordinator: Mary Kate Almaraz DCPIA - Discharge Planning Initial Assessment Updated by [email or web address]: Mary Kate Almaraz on 09/23/18 3:41 pm * Is the patient Alert and Oriented? Yes * How many steps to enter\\exit or inside your home? 0/0 * PCP Dr. Landon * Pharmacy [facility] * Preadmission Environment Home with Family * ADLs Partial Dependent * Partial ADLs (Assistance needed) Ambulation * Equipment Bedside Commode Crutch Walker * Other Equipment Has a CPM, but states they are going to take it back since he can not use it at this time. * List name and contact numbers for known caregivers / representatives who currently or will assist patient after discharge: Roxanne Monet - [facility] - [phone] * Verbal permission to speak to the caregivers and representatives has been obtained from the patient. Yes * Community resources currently utilized None * Additional services required to return to the preadmission environment? Yes * Can the patient safely return to the preadmission environment? Yes * Has this patient been hospitalized within the prior 30 days at any hospital? No Coverage Notice Reviewer: [id number] Barrie Almaraz Notice Issued Date-Time: 09/23/2018 15:47 Notice Type: Patient Choice Letter Notice Delivered To: Patient Relationship to Patient: Agricultural Chemist Name: Delivery Method: HAND - Hand Delivered Dee Days: Prior Verbal Notification: Recipient Understood Notice: Yes Recipient Signature: Yes Med Rec Note Co-signed by Attending: Coverage Notice Comment: YOJANA for [facility] Reviewer: [id number] Barrie Almaraz Notice Issued Date-Time: 09/28/2018 11:02 Notice Type: IM Discharge Notice Notice Delivered To: Patient Relationship to Patient: Self Agricultural Chemist Name: Delivery Method: HAND - Hand Delivered Dee Days: Prior Verbal Notification: Recipient Understood Notice: Yes Recipient Signature: Yes Med Rec Note Co-signed by Attending: Coverage Notice Comment: IMM explained, signed, given and placed in MR Last DP export: 09/23/18 2:49 pm Patient Name: NORMAN MONET Page [id number] at 1105 All edits/amendments must be made on the electronic document DICTATION DATE: 09/28/181104 DATA ENGINEER: MIQUEL 09/28/181104 RPT#: [id number] DC DATE: STATUS: ADM IN [facility] [address] [place] [address] END OF REPORT
[2018-09-28 13:02] VITALS: BP 122/48
--- NOTE | 2018-09-28 13:45 | NUR ---
PT DISCHARGED TO [facility] VIA WHEELCHAIR ACCOMPANIED BY [facility] STAFF. DRESSING CHANGED ON RIGHT KNEE, MEPELEX BORDERED DRESSING APPLIED. WENT OVER DISCHARGE INSTRUCTIONS WITH PT, PT VERBALIZED UNDERSTANDING. PT DENIES ANYTHING FURTHER. REPORT CALLED INTO [facility].
--- NOTE | 2018-09-30 16:12 | MORECARE ---
CASE MANAGEMENT DISCHARGE SUMMARY PATIENT: NORMAN MONET UNIT: [id number] ADM DATE: 09/22/18 AGE: 68 : 50 SEX: M ROOM/BED: D.2224 AUTHOR: BILL RODRIGUEZ PHYSICIAN: REFERRING PHYSICIAN: SHAGGY STONE DO DATE OF SERVICE: 09/30/18 Discharge Plan Patient Name: NORMAN MONET Facility: [facility]:[place] : 1950 Planned Disposition: Fdc Facility Anticipated Discharge Date: Discharge Date: 09/28/2018 Expected LOS: 0 Initial Reviewer: [id number] Initial Review Date: 09/23/2018 Generated: 09/30/18 5:12 pm Comments DCP- Discharge Planning Updated by [id number]: Mary Kate Sung on 09/28/18 10:[address] Patient Name: NORMAN MONET Encounter No: [id number] : 1950 Primary Insurance: MEDICARE A & B Anticipated DC Date: Planned Disposition: Fdc Facility External Planned Provider: : DCP follow-up note: Patient and family in agreement with discharge plan. No changes to plan. He will be going to a skilled bed at [facility]. I have called and spoke to Maria De Jesus, informed Maria De Jesus that his weight is 299# for a large wheelchair with couples therapist on right leg. He will be picked up at 1:45. Clinical faxed to [facility] Rehab. Case management will follow and assist as needed. Mary Kate Almaraz DCP- Discharge Planning Updated by [id number]: Mary Kate Almaraz on 09/23/18 2:[address] Patient Name: NORMAN MONET Admission Status: Elective Accout number: [id number] Admission Date: 09-22-2018 : 1950 Admission Diagnosis: Attending: SHAGGY STONE Current LOS: 1 Anticipated DC Date: Planned Disposition: Fdc Facility Primary Insurance: MEDICARE A & B Discharge Planning Comments: CM met with patient to discuss discharge planning/needs, he is alone in the room. He lives with his in a one story home. He states that he no longer can drive because of his knee. He will need IV antibiotics at home for an extended period of time. He does not have a prescription plan. He states he uses [facility] to get his medications for economical reasons. I discussed the availability of inpatient rehab, SNF and home health. I did inform him that I could holt the antibiotics from an infusion company before he makes a decision and he states "no, I can't afford it." He states he would like to go to [facility]. YOJANA signed. I called Maria De Jesus at [facility] and clinical faxed. CM will continue to follow and assist with discharge planning/needs. Tile Layer: Mary Kate Almaraz DCPIA - Discharge Planning Initial Assessment Updated by [email or web address]: Mary Kate Almaraz on 09/23/18 3:41 pm * Is the patient Alert and Oriented? Yes * How many steps to enter\\exit or inside your home? 0/0 * PCP Dr. Landon * Pharmacy [facility] * Preadmission Environment Home with Family * ADLs Partial Dependent * Partial ADLs (Assistance needed) Ambulation * Equipment Bedside Commode Crutch Walker * Other Equipment Has a CPM, but states they are going to take it back since he can not use it at this time. * List name and contact numbers for known caregivers / representatives who currently or will assist patient after discharge: Roxanne Monet - [facility] - [phone] * Verbal permission to speak to the caregivers and representatives has been obtained from the patient. Yes * Community resources currently utilized None * Additional services required to return to the preadmission environment? Yes * Can the patient safely return to the preadmission environment? Yes * Has this patient been hospitalized within the prior 30 days at any hospital? No Coverage Notice Reviewer: [email or web address] Barrie Almaraz Notice Issued Date-Time: 09/23/2018 15:47 Notice Type: Patient Choice Letter Notice Delivered To: Patient Relationship to Patient: Wind Turbine Service Technician Name: Delivery Method: HAND - Hand Delivered Dee Days: Prior Verbal Notification: Recipient Understood Notice: Yes Recipient Signature: Yes Med Rec Note Co-signed by Attending: Coverage Notice Comment: YOJANA for [facility] Reviewer: [id number] Barrie Almaraz Notice Issued Date-Time: 09/28/2018 11:02 Notice Type: IM Discharge Notice Notice Delivered To: Patient Relationship to Patient: Self Wind Turbine Service Technician Name: Delivery Method: HAND - Hand Delivered Dee Days: Prior Verbal Notification: Recipient Understood Notice: Yes Recipient Signature: Yes Med Rec Note Co-signed by Attending: Coverage Notice Comment: IMM explained, signed, given and placed in MR Last DP export: 09/28/18 10:05 a Patient Name: NORMAN MONET Page [id number] at 1612 All edits/amendments must be made on the electronic document DICTATION DATE: 09/30/181611 FORMING ROLL OPERATOR: MIQUEL 09/30/182 RPT#: [id number] DC DATE:09/28/18 STATUS: DIS IN [facility] [address] [place] [address] END OF REPORT
== END 2018-09-28 13:47 | DRG 467 ==
LOC: D.SDCHOLD 09-22 09:20 → D.MS 09-22 09:20 → D.SDCHOLD 09-22 10:00 → D.MS 09-22 19:11
PROVIDERS: Internal Medicine Nephrology; ADMIT Orthopaedic Surgery; ATTEND Orthopaedic Surgery
PROC: 0SPC0JZ Removal of Synthetic Substitute from Right Knee Joint, Open Approach (ICD-10-PCS; 2018-09-22)
PROC: 0SRC0EZ Replacement of Right Knee Joint with Articulating Spacer, Open Approach (ICD-10-PCS; principal; 2018-09-22 12:00)
PROC: 02HV33Z Insertion of Infusion Device into Superior Vena Cava, Percutaneous Approach (ICD-10-PCS; 2018-09-24)
PROC: B548ZZA Ultrasonography of Superior Vena Cava, Guidance (ICD-10-PCS; 2018-09-24)
DX: T84.53XA Infection and inflammatory reaction due to internal right knee prosthesis, initial encounter (principal); N17.9 Acute kidney failure, unspecified; E87.1 Hypo-osmolality and hyponatremia; B99.9 Unspecified infectious disease; D50.9 Iron deficiency anemia, unspecified; B95.8 Unspecified staphylococcus as the cause of diseases classified elsewhere; I12.9 Hypertensive chronic kidney disease with stage 1 through stage 4 chronic kidney disease, or unspecified chronic kidney disease; N18.9 Chronic kidney disease, unspecified

== ENCOUNTER → 2018-09-15 16:20 | Outpatient (CLI) | payer MEDICARE, OTHER ==
[2018-05-29 06:51] VITALS: BMI 44.5
[~2018-09-15 16:20] MED LIST changes: +LISINOPRIL10 MG PO
== END | disposition home or self-care (01) ==
LOC: D.LABREF 16:20
PROVIDERS: ATTEND Orthopaedic Surgery
DX: M17.11 Unilateral primary osteoarthritis, right knee (principal); Z11.8 Encounter for screening for other infectious and parasitic diseases

== ENCOUNTER → 2018-09-16 12:55 | Outpatient (CLI) | payer MEDICARE, OTHER ==
[2018-05-29 06:51] VITALS: BMI 44.5
[~2018-09-16 12:55] MED LIST changes: +ELIQUIS2.5 MG PO; +FERROUS SULFAT325 MG PO; +KEFLEX500 MG PO; +OXYCODONE HCL5 M1 PO; +VANCOMYCIN 1.5 GM/NS IV; +VISTARIL50 MG PO
[2018-09-16 17:11] LABS: EOS BF 1 %; MACROPHAGES BF 2 %; MESOTHELIALS BF 1 %; NEUT - BF 93 %
== END | disposition home or self-care (01) ==
LOC: D.SP 12:55 → D.RAD 13:30
PROVIDERS: Specialist; ATTEND Orthopaedic Surgery
DX: T84.032D Mechanical loosening of internal right knee prosthetic joint, subsequent encounter (principal); Z01.812 Encounter for preprocedural laboratory examination

== ENCOUNTER → 2018-11-05 11:11 | Outpatient (CLI) | payer MEDICARE, OTHER ==
--- NOTE | ~2018-11-05 | HEMODYNAMI ---
PATIENT:NORMAN MONET MEDICAL RECORD: [id number] : [birth year] LOCATION:[facility] ADMISSION DATE: 11/05/18 Generatedon:11/05/201812:49 Patient name: NORMAN MONET Patient #: [id number] SSN: B: 1950 Date of study: 11/05/2018 Page: Of Hemodynamic Procedure Report Patient Data Patient Demographics Procedure consent was obtained First Name: NORMAN Gender: Male Last Name: TIERNEY : 1950 [facility] Initial: A Age: 68 year(s) Patient #: [id number] Race: Unknown Additional ID: [id number] Contact details Address: [address] [place] [address] State: [place] City: [place] Zip code: [address] Past Medical History Allergies Allergen Reaction Date Comments Reported Other allergy 09/07/2018 latex, natural rubber Other allergy 09/16/2018 LATEX Other allergy 11/05/2018 LATEX Admission Admission Data Admission Date: 11/05/2018 Admission Time: 11:11 Procedure Procedure Types Cath Procedure Peripheral Cath Diagnostic Procedure Miscellaneous Aspiration/Injection (Joint) Procedure Description Procedure Date Procedure Date: 11/05/2018 Procedure Start Time: 12:33 Procedure Staff Name Function Johny Jensen MD Performing Physician David Martin RT Monitor Procedure Data Cath Procedure Fluoroscopy Diagnostic fluoroscopy Total fluoroscopy Time: 0.3 time: 0.3 min min Diagnostic fluoroscopy Total fluoroscopy dose: 1 dose: 1 mGy mGy Hemodynamics Rest Pre Cath Intra NCS Post Cath Procedure Log Time Note 12:29:04 David Martin RT (R) (CV) sent for patient. Start room use. 12:29:11 Time tracking: Regular hours (M-F 7:00 - 5:00) 12:29:12 Correct patient and procedure confirmed by team. 12:29:14 Signed procedure consent form obtained from patient. 12:29:17 Full Disclosure recording started 12:29:18 - 12:29:19 Pre-procedure instructions explained to patient. 12:29:20 Pre-op teaching completed and patient verbalized understanding. 12:29:42 Patient allergic to Other allergyLATEX 12:29:51 Right Knee was prepped with betadine and draped in sterile fashion. 12:32:59 Physician arrived 12:33:00 --------ALL STOP TIME OUT------ 12:33:01 Final Timeout: patient, procedure, and site verified with staff and physician. All members of the team are in agreement. 12:33:07 Left KNEE site verified by team. 12:33:23 Sedation plan: IV Moderate Sedation Medication:Lidocaine 12:33:36 Procedure started. 12:33:44 Local anesthetic to Right Knee with Lidocaine 1% by Johny Jensen MD.INITIAL ACCESS ONLY 12:33:52 SAFE-T PLUS MYELOGRAM TRAY opened to sterile field. 12:44:18 Procedure ended.(Physican Out) 12:47:21 Fluoroscopy time 00.30 minutes. 12:47:25 Fluoroscopy dose: 1 mGy 12:47:25 Flurop Dose total: 1 12:49:08 BANDAIDE APPLIED SITE STABLE PT SENT HOME Device Usage Item Name Manufacture Quantity Catalog Hospital Part Current Minimal Lot# / Number Charge Number Stock Stock Serial# Code SAFE-T [employer] 1 [id number] PLUS MYELOGRAM TRAY Signature Audit [place] Stage Time Signature Unsigned Intra-Procedure 11/05/2018 David 12:49:44 PM Veronica RT (R) (CV) Signatures Monitor : David Signature : Veronica RT Date : Time : [facility] [address] [place], [place] [id number]
[2018-11-05 15:00] LABS: MACROPHAGES BF 6 %; NEUT - BF 28 %
== END | disposition home or self-care (01) ==
LOC: D.SP 11:11
PROVIDERS: ATTEND Orthopaedic Surgery
DX: T84.53XA Infection and inflammatory reaction due to internal right knee prosthesis, initial encounter (principal); Z01.812 Encounter for preprocedural laboratory examination

== ENCOUNTER 2018-11-05 12:26 | Inpatient (IN) | payer MEDICARE, OTHER ==
[~2018-11-05] VITALS: Ht 175.3 cm; Wt 124.7 kg
[~2018-11-05 12:26] MED LIST changes: -FERROUS SULFAT325 MG PO; -KEFLEX500 MG PO
[2018-11-12 09:47] LABS: BASOPHILS 0.3 % (0-2); EOSINOPHILS 2.1 % (0-7); HEMATOCRIT 31.3 % (42.0-54.0); HEMOGLOBIN 10.5 g/dL (13.5-17.5); IMMATURE GRANULOCYTES 0.3 % (0-5); LYMPHOCYTES 22.5 % (15-50); MCH 28.1 pg (26.0-34.0); MCHC 33.5 g/dL (31.0-37.0); MCV 83.7 fL (80.0-100.0); MEAN PLATELET VOLUME 8.3 fL (7.4-10.4); MONOCYTES 8.2 % (2-11); NEUTROPHILS 66.6 % (40-80); RBC 3.74 10x6/uL (4.20-6.10); RDW 13.7 % (11.5-14.5); WBC 7.2 10x3/uL (4.8-10.8)
[2018-11-12 09:48] LABS: PLATELET COUNT 243 10x3/uL (130-400)
[2018-11-12 09:55] LABS: APTT 28.7 SECONDS (22.8-39.4); INR 1.11 (0.85-1.17); PROTIME 13.8 SECONDS (11.6-15.0)
[2018-11-12 09:56] LABS: ANION GAP 14.3 mmol/L (8-16); C-REACTIVE PROTEIN 4.8 mg/dL (0.0-0.9); CALCIUM 9.4 mg/dL (8.5-10.1); CARBON DIOXIDE 23.9 mmol/L (21.0-32.0); CREATININE - SERUM 1.9 mg/dL (0.6-1.3); POTASSIUM - SERUM 4.2 mmol/L (3.5-5.1)
[2018-11-12 10:46] LABS: APPEARANCE HAZY (CLEAR); BACTERIA FEW /hpf (NONE SEEN); BILIRUBIN NEGATIVE (NEGATIVE); COLOR YELLOW (YELLOW); EPITHELIAL CELLS 0-5 /hpf (0-5); GLUCOSE NEGATIVE (NEGATIVE); KETONE NEGATIVE (NEGATIVE); MUCUS <1+ /lpf (NONE SEEN); NITRITE NEGATIVE (NEGATIVE); PROTEIN NEGATIVE (NEGATIVE); SPECIFIC GRAVITY 1.015 (1.005-1.020); UROBILINOGEN NORMAL (NORMAL); WHITE CELLS - URINE 0-5 /hpf (0-5)
[2018-11-12 11:37] LABS: ERYTHROCYTE SEDIMENTATION RATE 75 mm/hr (0-20)
[2018-11-13 11:51] VITALS: BP 129/71
[2018-11-13 11:57] VITALS: BP 129/71; BMI 40.7
--- NOTE | 2018-11-13 15:27 | OP ---
PATIENT NAME: NORMAN MONET MEDICAL RECORD: [id number] :[birth year] LOCATION:[facility] ADMISSION DATE:11/13/18 SURGEON: JOHNY STONE DO DATE OF OPERATION: 11/13/2018 PROCEDURE PERFORMED: Revision right total knee arthroplasty with removal of antibiotic spacers. PREOPERATIVE DIAGNOSIS: Infected right total knee. POSTOPERATIVE DIAGNOSIS: Infected right total knee. INDICATIONS: Mr. Monet is a 68-year-old male who came to me several months ago complaining of right knee pain. He had a total knee put in after a severe tibial plateau fracture 13 years ago. He has had pain since it has been put in. We gisel labs and then aspirated on his knee and he grew back up. It was infected. After doing this, we did a second time and it came back with the same bacteria. Knowing that growing in, we took everything out and placed antibiotic spacers 7 weeks ago. He completed a 6-week course of IV antibiotics through PICC line 6 weeks ago and he did well with that. His labs normalized and then we did aspirate after being off antibiotics for approximately a week. The aspirate had not grown anything, any bacteria in 5 days. His CRP was elevated, but none of the other labs were, but due to the fact that the aspirate was negative for any bacterial growth, we proceeded with a revision knee. He was okay with that plan and was aware of the increased risks of infection, bleeding, damage to nerves and vessels, need for further surgery, loss of motion of the knee, blood clots, and even and he signed the consent. SURGEON: Johny Stone DO DESCRIPTION OF PROCEDURE: The patient received a block by anesthesia in the preoperative area. He was taken to the operative suite, laid in supine position. The right lower extremity was prepped and draped in sterile fashion and then an incision was marked out of the old incision. This was covered with Ioban. Once that was done and a timeout had been performed, the incision began through the skin with a 10-blade scalpel down to the capsule. Once the capsule was exposed, the old incision was used to go through the capsule. There was extremely large amount of scar tissue in the knee and this was removed and then the spacers were removed as well. Once the medial and lateral gutters had been established and the other scar tissue was removed, the femur was exposed and drilled the femur, reamed up to a 17, did a fresh up distal femur cut. Once this was freshened up and cut, the tibia was exposed and we reamed to the tibia as well and then did a cleanup cut on the tibia 1 mm. We then placed the trials and decided to go with 15 augments on the tibia as he had had a lot of tibia loss prior to this 15 augments on the tibia and a 65 femur with 5 mm distal augments. We then prepped the tibia and reamed for the tibial component. This was thoroughly irrigated. Cement was then mixed, placed in the tibia and on the tibial component. Once that was completed, the tibia was impacted into place. Excess cement was removed. The femur was then done as well. Cement was put on the femur and on the implant. This was impacted into place. Excess cement was removed from it as well and a 14 poly was placed in between them. Knee was brought to extension and thoroughly irrigated and the tourniquet was let down. The tourniquet was used throughout the procedure. It was elevated to 350 mmHg after exsanguinating the right lower extremity prior to starting and was up for 122 minutes. At that point, once the implants were in the tibia, the tourniquet OPERATIVE REPORT [id number] NORMAN MONET was let down at 122 minutes, any bleeding was coagulated with Aquamantys. The Bactisure was then used to irrigate the wound and more regular normal saline after that. I then trialed up to a 20 poly, 20 felt most stable in flexion and extension, so we decided to go with a 20-poly. This was then locked in with the locking mechanism. Then, vancomycin and tobramycin powder as well as Surgicel powder was put in the knee. The capsule was then closed with two #2 Ethibond in a gftzkb-vm-xjajn fashion. This was then ranged and got up to 120 degrees of flexion and was very pleased with that due to the amount of scar tissue and full extension. The skin was then closed with 2-0 Vicryl in inverted interrupted fashion and the ZipLine placed on the knee. Adaptic, 4 x 4s, ABD, Webril, Pradip wrap and CARA hose stockings were placed on the plate. The patella was not done due to measuring it and it was only 13 mm thick and did not want to risk fracturing the patella. He was then awakened and taken to recovery in stable condition. COMPLICATIONS: None. BLOOD LOSS: Approximately 200 mL. TRANSINT:[id number] Voice Confirmation ID: [id number] DOCUMENT ID: [id number] JOHNY STONE DO at 1527 CC: [id number] DICTATION DATE: 11/13/18 1108 INSTRUMENT CALIBRATOR: 11/13/18 1301 ADM IN [place] [id number] [place] [address]
[2018-11-13 16:32] VITALS: BP 135/71
[2018-11-13 17:14] LABS: BASOPHILS 0 % (0-2); EOSINOPHILS 0 % (0-7); HEMATOCRIT 27.9 % (42.0-54.0); HEMOGLOBIN 9.3 g/dL (13.5-17.5); IMMATURE GRANULOCYTES 0.1 % (0-5); LYMPHOCYTES 5.8 % (15-50); MCH 28.3 pg (26.0-34.0); MCHC 33.3 g/dL (31.0-37.0); MCV 84.8 fL (80.0-100.0); MEAN PLATELET VOLUME 8.5 fL (7.4-10.4); MONOCYTES 3.2 % (2-11); NEUTROPHILS 90.9 % (40-80); PLATELET COUNT 212 10x3/uL (130-400); RBC 3.29 10x6/uL (4.20-6.10); RDW 13.5 % (11.5-14.5); WBC 8.6 10x3/uL (4.8-10.8)
[2018-11-13 17:37] LABS: ALBUMIN 2.8 g/dL (3.4-5.0); ANION GAP 13.3 mmol/L (8-16); BILIRUBIN - TOTAL 0.25 mg/dL (0.2-1.3); CALCIUM 8.2 mg/dL (8.5-10.1); CARBON DIOXIDE 22.5 mmol/L (21.0-32.0); CREATININE - SERUM 2.2 mg/dL (0.6-1.3); POTASSIUM - SERUM 4.8 mmol/L (3.5-5.1); PROTEIN - SERUM 7.1 g/dL (6.4-8.2)
[2018-11-13 20:43] VITALS: BP 113/50
[2018-11-14 00:52] VITALS: BP 118/70
[2018-11-14 06:56] LABS: BASOPHILS 0.1 % (0-2); EOSINOPHILS 0.1 % (0-7); HEMATOCRIT 25.9 % (42.0-54.0); HEMOGLOBIN 8.5 g/dL (13.5-17.5); IMMATURE GRANULOCYTES 0.1 % (0-5); LYMPHOCYTES 15.3 % (15-50); MCH 27.5 pg (26.0-34.0); MCHC 32.8 g/dL (31.0-37.0); MCV 83.8 fL (80.0-100.0); MEAN PLATELET VOLUME 8.4 fL (7.4-10.4); MONOCYTES 9.8 % (2-11); NEUTROPHILS 74.6 % (40-80); PLATELET COUNT 208 10x3/uL (130-400); RBC 3.09 10x6/uL (4.20-6.10); RDW 13.4 % (11.5-14.5); WBC 8.1 10x3/uL (4.8-10.8)
[2018-11-14 07:24] LABS: ALBUMIN 2.8 g/dL (3.4-5.0); ANION GAP 13.3 mmol/L (8-16); BILIRUBIN - TOTAL 0.31 mg/dL (0.2-1.3); CREATININE - SERUM 1.7 mg/dL (0.6-1.3); POTASSIUM - SERUM 4.3 mmol/L (3.5-5.1); PROTEIN - SERUM 6.9 g/dL (6.4-8.2)
[2018-11-14 08:58] VITALS: BP 132/65
[2018-11-14 11:38] VITALS: Ht 175.3 cm; Wt 124.7 kg
[2018-11-14 14:14] VITALS: BP 112/63
[2018-11-14 17:27] VITALS: BP 165/81
[2018-11-14 20:18] VITALS: BP 127/54
[2018-11-15 05:34] VITALS: BP 116/68
[2018-11-15 06:05] LABS: BASOPHILS 0.3 % (0-2); HEMATOCRIT 26.3 % (42.0-54.0); HEMOGLOBIN 8.5 g/dL (13.5-17.5); IMMATURE GRANULOCYTES 0.1 % (0-5); LYMPHOCYTES 19.2 % (15-50); MCH 27.2 pg (26.0-34.0); MCHC 32.3 g/dL (31.0-37.0); MCV 84.3 fL (80.0-100.0); MEAN PLATELET VOLUME 8.3 fL (7.4-10.4); NEUTROPHILS 68.4 % (40-80); PLATELET COUNT 175 10x3/uL (130-400); RBC 3.12 10x6/uL (4.20-6.10); RDW 13.6 % (11.5-14.5)
[2018-11-15 06:25] LABS: ALBUMIN 2.7 g/dL (3.4-5.0); ANION GAP 11.7 mmol/L (8-16); BILIRUBIN - TOTAL 0.36 mg/dL (0.2-1.3); CALCIUM 8.2 mg/dL (8.5-10.1); CARBON DIOXIDE 24.5 mmol/L (21.0-32.0); CREATININE - SERUM 1.3 mg/dL (0.6-1.3); POTASSIUM - SERUM 4.2 mmol/L (3.5-5.1); PROTEIN - SERUM 6.8 g/dL (6.4-8.2)
[2018-11-15 08:30] VITALS: BP 135/67
[2018-11-15 13:20] VITALS: BP 128/59
[2018-11-15 16:12] VITALS: BP 113/61
[2018-11-15 20:33] VITALS: BP 114/54
[2018-11-16 06:22] LABS: BASOPHILS 0.5 % (0-2); HEMATOCRIT 24.1 % (42.0-54.0); IMMATURE GRANULOCYTES 0.3 % (0-5); LYMPHOCYTES 24.6 % (15-50); MCHC 33.2 g/dL (31.0-37.0); MCV 84.3 fL (80.0-100.0); MEAN PLATELET VOLUME 8.7 fL (7.4-10.4); MONOCYTES 11.5 % (2-11); NEUTROPHILS 60.1 % (40-80); PLATELET COUNT 175 10x3/uL (130-400); RBC 2.86 10x6/uL (4.20-6.10); RDW 13.5 % (11.5-14.5)
[2018-11-16 07:11] LABS: ALBUMIN 2.4 g/dL (3.4-5.0); BILIRUBIN - TOTAL 0.38 mg/dL (0.2-1.3); CALCIUM 8.1 mg/dL (8.5-10.1); CARBON DIOXIDE 24.6 mmol/L (21.0-32.0); CREATININE - SERUM 1.5 mg/dL (0.6-1.3); POTASSIUM - SERUM 3.6 mmol/L (3.5-5.1); PROTEIN - SERUM 6.3 g/dL (6.4-8.2)
[2018-11-16] MEDS ORDERED: OXYCODONE HCL5 M1 PO (08:11)
[2018-11-16] MEDS ORDERED: ELIQUIS2.5 MG PO (08:11)
[2018-11-16] MEDS ORDERED: KEFLEX500 MG PO (08:11)
[2018-11-16] MEDS ORDERED: FERROUS SULFAT325 MG PO (08:13)
[2018-11-16 09:11] VITALS: BP 112/58
--- NOTE | 2018-11-16 09:14 | MORECARE ---
CASE MANAGEMENT DISCHARGE SUMMARY PATIENT: NORMAN MONET UNIT: [id number] ADM DATE: 11/13/18 AGE: 68 : 50 SEX: M ROOM/BED: D.2237 AUTHOR: BILL RODRIGUEZ PHYSICIAN: REFERRING PHYSICIAN: SHAGGY STONE DO DATE OF SERVICE: 11/16/18 Discharge Plan Patient Name: NORMAN MONET [facility] [facility] 1950 Planned Disposition: Anticipated Discharge Date: Discharge Date: Expected LOS: Initial Reviewer: [email or web address] Initial Review Date: 11/16/2018 Generated: 11/16/18 10:14 am Patient Name: NORMAN MONET Page [id number] at 0914 All edits/amendments must be made on the electronic document DICTATION DATE: 11/16/18912 WEIGHT CHECKER: MIQUEL 11/16/18912 RPT#: [id number] DC DATE: STATUS: ADM IN [facility] [address] [place] [address] END OF REPORT
--- NOTE | 2018-11-16 09:22 | MORECARE ---
CASE MANAGEMENT DISCHARGE SUMMARY PATIENT: NORMAN MONET UNIT: [id number] ADM DATE: 11/13/18 AGE: 68 : 50 SEX: M ROOM/BED: D.2237 AUTHOR: BILL RODRIGUEZ PHYSICIAN: REFERRING PHYSICIAN: SHAGGY STONE DO DATE OF SERVICE: 11/16/18 Discharge Plan Patient Name: NORMAN MONET [facility] [facility] 1950 Planned Disposition: Anticipated Discharge Date: Discharge Date: Expected LOS: Initial Reviewer: [email or web address] Initial Review Date: 11/16/2018 Generated: 11/16/18 10:21 am Comments DCP- Discharge Planning Updated by [email or web address]: Sarai Salinas on 11/16/18 8:[address] PT DISCHARGING TODAY. OP PT SET UP FOR Fri. PT HAS CPM. IMM SIGNED PLACED IN MEDICAL RECORD. PT INFORMED AND GIVEN INFO ABOUT PT Last DP export: 11/16/18 8:14 a Patient Name: NORMAN MONET Page [id number] at 0922 All edits/amendments must be made on the electronic document DICTATION DATE: 11/16/18920 ROLL OVER PRESS OPERATOR: MIQUEL 11/16/18920 RPT#: [id number] DC DATE: STATUS: ADM IN [facility] [address] [place] [address] END OF REPORT
--- NOTE | 2018-11-16 12:47 | MORECARE ---
CASE MANAGEMENT DISCHARGE SUMMARY PATIENT: NORMAN MONET UNIT: [id number] ADM DATE: 11/13/18 AGE: 68 : 50 SEX: M ROOM/BED: D.2237 AUTHOR: BILL RODRIGUEZ PHYSICIAN: REFERRING PHYSICIAN: SHAGGY STONE DO DATE OF SERVICE: 11/16/18 Discharge Plan Patient Name: NORMAN MONET [facility] [facility] 1950 Planned Disposition: Anticipated Discharge Date: Discharge Date: 11/16/2018 Expected LOS: Initial Reviewer: [email or web address] Initial Review Date: 11/16/2018 Generated: 11/16/18 1:47 pm Comments DCP- Discharge Planning Updated by [email or web address]: Sarai Salinas on 11/16/18 8:[address] PT DISCHARGING TODAY. OP PT SET UP FOR Fri. PT HAS CPM. IMM SIGNED PLACED IN MEDICAL RECORD. PT INFORMED AND GIVEN INFO ABOUT PT Last DP export: 11/16/18 8:22 a Patient Name: NORMAN MONET Page [id number] at 1247 All edits/amendments must be made on the electronic document DICTATION DATE: 11/16/181246 AIRFIELD ENGINEER OFFICER: MIQUEL 11/16/18 1247 RPT#: [id number] DC DATE:11/16/18 STATUS: DIS IN [facility] [address] [place] [address] END OF REPORT
== END 2018-11-16 11:00 | disposition home or self-care (01) | DRG 467 ==
LOC: D.SDCHOLD 11-13 05:00 → D.MS 11-13 05:00 → D.SDCHOLD 11-13 07:00 → D.MS 11-13 11:40
PROVIDERS: Emergency Medicine; ADMIT Orthopaedic Surgery; ATTEND Orthopaedic Surgery
PROC: 0SRC0J9 Replacement of Right Knee Joint with Synthetic Substitute, Cemented, Open Approach (ICD-10-PCS; 2018-11-13)
PROC: 0SPC08Z Removal of Spacer from Right Knee Joint, Open Approach (ICD-10-PCS; principal; 2018-11-13 07:00)
DX: T84.53XA Infection and inflammatory reaction due to internal right knee prosthesis, initial encounter (principal); D62 Acute posthemorrhagic anemia; N17.9 Acute kidney failure, unspecified; M00.061 Staphylococcal arthritis, right knee; B95.8 Unspecified staphylococcus as the cause of diseases classified elsewhere; Z16.29 Resistance to other single specified antibiotic

== ENCOUNTER → 2019-07-27 10:43 | Outpatient (CLI) | payer MEDICARE, OTHER ==
[2018-11-14 11:38] VITALS: BMI 40.6
[~2019-07-27 10:43] MED LIST changes: +FERROUS SULFAT325 MG PO; +KEFLEX500 MG PO
== END | disposition home or self-care (01) ==
LOC: D.MRI 10:43
PROVIDERS: ATTEND Orthopaedic Surgery
DX: M54.16 Radiculopathy, lumbar region (principal)

== ENCOUNTER 2020-07-04 19:48 | Inpatient (IN) | payer MEDICARE, OTHER ==
[~2020-07-04] VITALS: Ht 175.3 cm; Wt 136.1 kg
[2020-07-04] MEDS ORDERED: DICLOFENAC SOD100 MG PO (19:58)
[2020-07-04] MEDS ORDERED: LISINOPRIL-HCT1 EAC4 PO (19:59)
[2020-07-04 20:30] LABS: BASOPHILS 0.2 % (0-2); EOSINOPHILS 2.7 % (0-7); HEMOGLOBIN 10.9 g/dL (13.5-17.5); IMMATURE GRANULOCYTES 0.4 % (0-5); LYMPHOCYTE ABS# 1.17 10x3/uL (1.32-3.57); LYMPHOCYTES 22.3 % (15-50); MCH 28.4 pg (26.0-34.0); MCV 85.9 fL (80.0-100.0); MEAN PLATELET VOLUME 8.1 fL (7.4-10.4); MONOCYTES 10.1 % (2-11); NEUTROPHIL ABS# 3.37 10x3/uL (1.78-5.38); NEUTROPHILS 64.3 % (40-80); PLATELET COUNT 163 10x3/uL (130-400); RBC 3.84 10x6/uL (4.20-6.10); RDW 13.4 % (11.5-14.5); WBC 5.2 10x3/uL (4.8-10.8)
[2020-07-04 20:43] LABS: APTT 28.7 SECONDS (22.8-39.4); INR 1.2 (0.85-1.17); PROTIME 14.1 SECONDS (11.6-15.0)
[2020-07-04 20:56] LABS: CALCIUM 8.4 mg/dL (8.5-10.1); CARBON DIOXIDE 23.2 mmol/L (21.0-32.0); CREATININE - SERUM 2.1 mg/dL (0.6-1.3); POTASSIUM - SERUM 4.2 mmol/L (3.5-5.1)
[2020-07-04 21:01] LABS: ALBUMIN 3.2 g/dL (3.4-5.0); BILIRUBIN - TOTAL 0.39 mg/dL (0.2-1.3); PROTEIN - SERUM 6.3 g/dL (6.4-8.2)
[2020-07-05 04:37] VITALS: BP 125/67
[2020-07-05 05:22] LABS: BASOPHILS 0.1 % (0-2); EOSINOPHILS 0 % (0-7); HEMATOCRIT 34.1 % (42.0-54.0); HEMOGLOBIN 11.1 g/dL (13.5-17.5); IMMATURE GRANULOCYTES 0.3 % (0-5); LYMPHOCYTE ABS# 0.49 10x3/uL (1.32-3.57); LYMPHOCYTES 6.6 % (15-50); MCH 27.9 pg (26.0-34.0); MCHC 32.6 g/dL (31.0-37.0); MCV 85.7 fL (80.0-100.0); MEAN PLATELET VOLUME 8.3 fL (7.4-10.4); MONOCYTES 1.2 % (2-11); NEUTROPHIL ABS# 6.87 10x3/uL (1.78-5.38); NEUTROPHILS 91.8 % (40-80); PLATELET COUNT 183 10x3/uL (130-400); RBC 3.98 10x6/uL (4.20-6.10); RDW 13.4 % (11.5-14.5)
[2020-07-05 05:35] LABS: WBC 7.5 10x3/uL (4.8-10.8)
[2020-07-05 05:51] LABS: ALBUMIN 3.1 g/dL (3.4-5.0); ANION GAP 14.1 mmol/L (8-16); BILIRUBIN - TOTAL 0.51 mg/dL (0.2-1.3); CALCIUM 8.3 mg/dL (8.5-10.1); CARBON DIOXIDE 22.2 mmol/L (21.0-32.0); CREATININE - SERUM 1.8 mg/dL (0.6-1.3)
[2020-07-05 05:54] LABS: POTASSIUM - SERUM 5.3 mmol/L (3.5-5.1)
--- NOTE | 2020-07-05 07:16 | OP ---
PATIENT NAME: NORMAN MONET MEDICAL RECORD: [id number] :50 LOCATION:[id number] ADMISSION DATE:07/04/20 SURGEON: JOHNY STONE DO DATE OF OPERATION: 07/04/2020 PROCEDURES PERFORMED: Right ankle irrigation and debridement with open reduction and internal fixation. PREOPERATIVE DIAGNOSIS: Type 2 open right bimalleolar ankle fracture. POSTOPERATIVE DIAGNOSIS: Type 2 open right bimalleolar ankle fracture. INDICATIONS: Mr. Monet is a 70-year-old male who said he just twisted his right leg and his ankle popped out on the medial side. He was brought to the ER and given Ancef and set up for surgery immediately. I saw him in the ER as he was headed back and we went over the risks and benefits of the procedure including infection, nonunion, malunion, continued pain, need for further surgery, blood clots and even and damage to nerves and vessels in the area and he signed the consent. SURGEON: Johny Stone DO. DESCRIPTION OF PROCEDURE: The patient was taken to the operative suite, laid in supine position, given general anesthetic and intubated with rapid sequence intubation. He was given 2 more grams of Ancef. The right lower extremity was then prepped and draped in sterile fashion with Betadine. A timeout was performed; everyone was in agreement with correct side, site, patient and procedure. I then began by irrigating out the medial side. He had a 9 cm laceration over the medial malleolus horizontal in nature and took out any bone fragments that were loose. He did have an OCD lesion on the talus that was not repairable. It was noted over the medial shoulder. I then irrigated that with 3 liters, temporarily fixed medial malleolus with a K-wire, went to the lateral side, opened up the lateral side, reduced the fibula and put an 8-hole Georgina stainless steel locking plate on the fibula. I put 1 screw in the shaft and then locked 5 distally and then put another cortical screw in the shaft and 2 more lateral locking screw in the shaft. I then put one more locking screw just proximal to the fracture and then went to the medial side and cut the medial malleolus. It was just a small tip of the medial malleolus fracture. I got 2 K-wires into it and reduced and put two 4-0 cannulated 44 mm stainless screws, one with a washer on it on the side to hold it and then I put a ZipTight across the syndesmosis cinching it down nicely. We then irrigated again with 3 liters normal saline on the medial side. He did have approximately 500 mL of blood loss. He had 6 liters total of irrigation of the open site. I then closed the open site, the 9 cm laceration with 2-0 Prolene using a modified Donati type retention suture and the 2 poke holes for the cannulated screws on the medial side just inferior to the open site with 4-0 Monocryl in a simple fashion. I then closed the lateral side. It was done by Kash Mathur and myself with 2-0 Vicryl in interrupted fashion. We then cleaned it and put Cavilon and ZipLine along and cinched it down and then cut off the extra tabs on the ZipLine. We then put Adaptic, 4 x 4, ABD over the incision on the anterior ankle and one on the heel and wrapped it with cast padding, put a 4 x 30 splint, secured it with an Pradip wrap. He was then awakened and taken to recovery in stable condition. BLOOD LOSS: Again approximately 500 mL. OPERATIVE REPORT [id number] NORMAN MONET COMPLICATIONS: None. TRANSINT:[id number] Voice Confirmation ID: [id number] DOCUMENT ID: [id number] JOHNY STONE DO at 0716 CC: [id number] DICTATION DATE: 07/04/202249 SENIOR BUSINESS DEVELOPMENT MANAGER: 07/04/20 2351 ADM IN [place] [place] [place] [address]
[2020-07-05 07:58] LABS: INR 1.19 (0.85-1.17)
[2020-07-05 08:17] VITALS: BP 109/61
--- NOTE | 2020-07-05 09:45 | NUR ---
ASSESMENT PER FLOW SHEET. PATTIENT IS WITHOUT DISTRESS.DRESSING RLE CDI. DENIES NEEDS.CALL LIGHT IN REACH
[2020-07-05 10:57] VITALS: BMI 44.4
--- NOTE | 2020-07-05 11:56 | NUR ---
HAS BEEN UP WITH PT. REDNESS NOTED TO RIGHT INNER BUTTOCK. BUTT PASTE APPLIED. REDNESS AND CRACKING NOTED TO RIGHT HEEL. HEEL OFF OF BED
--- NOTE | 2020-07-05 11:58 | NUR ---
EGG CRATE PUT ON BED
[2020-07-05 12:12] VITALS: BP 125/63
[2020-07-05 13:04] VITALS: Ht 175.3 cm; Wt 136.1 kg
--- NOTE | 2020-07-05 15:53 | NUR ---
AT BEDSIDE. PATIENT IS WITHOUT DISTRESS.WITHOUT SIGNS OF PAIN. MONITOR
[2020-07-05 17:30] VITALS: BP 109/51
--- NOTE | 2020-07-05 20:00 | NUR ---
PT SITTING UP IN BED WITHOUT DISTRESS, AOX4. IV RIGHT UPPER ARM INFUSING 1/2NS @ 50. SCD TO LEFT LEG, HEEL PROTECTOR ON. RIGHT LEG PROPPED ON PILLOWS. NEW ICE PACKS APPLIED TO LEG. PT USING INCENTIVE SPIROMETER WHILE AWAKE. O2 2L/NC. DENIES NEEDS AT THIS TIME.
[2020-07-05 20:59] VITALS: BP 102/45
--- NOTE | 2020-07-05 22:00 | NUR ---
PT STATES PAIN 01/28, GAVE DILAUDID ORDERED. PROVIDED PT WITH OVERHEAD BAR TO USE FOR THERAPY. DENIES OTHER NEEDS AT THIS TIME
[2020-07-06] VITALS (7 sets, daily range): BP systolic 87–131; BP diastolic 50–78
--- NOTE | 2020-07-06 01:00 | NUR ---
PT STATES PAIN 9/10 TO RIGHT FOOT, GAVE DILAUDID ORDERED. PROVIDED NEW ICE PACKS. DENIES OTHER NEEDS
--- NOTE | 2020-07-06 04:00 | NUR ---
PT STATES PAIN 5/10, REQUESTED AND GIVEN DILAUDID. DENIES OTHER NEEDS
[2020-07-06 06:29] LABS: BASOPHILS 0.1 % (0-2); EOSINOPHILS 0.3 % (0-7); HEMATOCRIT 31.3 % (42.0-54.0); IMMATURE GRANULOCYTES 0.3 % (0-5); LYMPHOCYTE ABS# 1.06 10x3/uL (1.32-3.57); LYMPHOCYTES 15.5 % (15-50); MCH 27.9 pg (26.0-34.0); MCHC 31.9 g/dL (31.0-37.0); MCV 87.4 fL (80.0-100.0); MEAN PLATELET VOLUME 8.5 fL (7.4-10.4); MONOCYTES 12.5 % (2-11); NEUTROPHIL ABS# 4.89 10x3/uL (1.78-5.38); NEUTROPHILS 71.3 % (40-80); PLATELET COUNT 199 10x3/uL (130-400); RBC 3.58 10x6/uL (4.20-6.10); RDW 13.7 % (11.5-14.5); WBC 6.9 10x3/uL (4.8-10.8)
[2020-07-06 06:57] LABS: ANION GAP 11.6 mmol/L (8-16); BILIRUBIN - TOTAL 0.41 mg/dL (0.2-1.3); CARBON DIOXIDE 26.4 mmol/L (21.0-32.0); CREATININE - SERUM 1.9 mg/dL (0.6-1.3); MAGNESIUM - SERUM 2.4 mg/dL (1.8-2.4); PHOSPHOROUS 4.5 mg/dL (2.5-4.9); PROTEIN - SERUM 6.1 g/dL (6.4-8.2)
--- NOTE | 2020-07-06 09:37 | NUR ---
PATIENT BP MANUALLY OBTAINED IS 110/78 WILL CONTINUE TO MONITOR
--- NOTE | 2020-07-06 10:00 | NUR ---
I have reviewed this patient and I concur with the Shift Assessment completed by the Licensed Practical Nurse today this shift.
--- NOTE | 2020-07-06 10:42 | NUR ---
SPOKE TO DELFINO WITH PHYSICAL THERAPY IN REGARDS TO TRAPEZE BAR ORDERED, PER DELFINO WILL PLACE TODAY. NO OTHER NEEDS AT THIS TIME CONTINUE WITH PLAN OF CARE
--- NOTE | 2020-07-06 10:43 | NUR ---
PATIENT FLAGGING DOWN NURSES WALKING BY ROOM ASKING FOR PAIN MEDICATION STATED IT WAS SUPPOSE TO BE GIVEN AT 930 AND IS LATE, ECPLAINED TO PATIENT HE NEEDS TO USE CALL LIGHT AND MEDICATION IS NOT SCHEDULED AND I WILL BE GLAD TO GET FOR HIM
--- NOTE | 2020-07-06 11:49 | NUR ---
PATIENT UP WITH PHYSICAL THERAPY, ABLE TO TAKE A FEW STEPS SIDEWAYS. ADMNISTERED SUPPOSITORY WHILE PATIENT UP. CONTINUE WITH PLAN OF CARE
--- NOTE | 2020-07-06 14:04 | NUR ---
Reviewed patient's chart and is not a Cardiac Rehab candidate, Physical Therapy and Occupational therapy are both on this case. Will defer to them. Thank you MISSY BOWER.REKHA,BSEP
--- NOTE | 2020-07-06 16:53 | NUR ---
ADMINISTERED PRN PAIN MEDICATION AT 1430 AND UPON REASSESSMENT PATIENT STATED PAIN WAS BETTER AT 1620 PT STATED HE WAS STARTING TO GET PAIN IN FOOT AGAIN AND NEEDED PAIN MEDICATION, TOLD PATIENT IT HAD ONLY BEEN 2 HOURS SINCE PAIN SHOT. PATIENT STATED HE FORGOT HE JUST HAD IT, ASKED PATIENT WHAT PAIN LEVEL WAS PATIENT STATED HE IS AT AN 8-8.5 BUT IS GETTING A HANDLE ON IT, TOLD PATIENT A PAIN LEVEL AT 8 IS NOT GETTING A HOLD OF IT. PATIENT IS SLEEPING AFTER EACH AMINISTRATION OF PAIN MEDICATIONS. WILL ADMINISTERED PRN PO PAIN MEDICATION AND PATIENT STATED " I STILL GET MY PAIN SHOT AT 545 RIGHT? TOLD PATIENT HE IS NOT GOING HOME ON IV PAIN MEDICATION AND WE NEED TO WEAN OFF THAT. PATIENT STATED HE IS NOT LEAVING UNTIL FRIDAY AND WILL NEED SHOT. CONTINUE WITH PLAN OF CARE
--- NOTE | 2020-07-06 17:13 | NUR ---
OT NOTE: PT REQUIRED TOTAL A FOR LB HYGIENE TASKS. PT COMPLETED SIDE ROLLING WITH MOD A. PT COMPLETED SUPINE TO SIT WITH MIN-MOD A. [phone] FEI CORONADO COTA
--- NOTE | 2020-07-06 18:42 | NUR ---
PATIENT WOKE UP FROM [facility] STATES PAIN IN FOOT IS AT A 7, ASKED FOR IV PAIN MEDS, ADMINISTERED PRN PAIN MEDICATION, SAT DOWN TO DO I&O'S AND PATIENT ALREADY BACK TO SLEEP. NO OTHER NEEDS AT THIS TIME. CONTINUE WITH PLAN OF CARE
[2020-07-07] VITALS: BP 104/61
[2020-07-07 04:00] VITALS: BP 103/58
[2020-07-07 05:57] LABS: BASOPHILS 0.2 % (0-2); EOSINOPHILS 2.2 % (0-7); HEMATOCRIT 29.3 % (42.0-54.0); HEMOGLOBIN 9.3 g/dL (13.5-17.5); IMMATURE GRANULOCYTES 0.4 % (0-5); LYMPHOCYTE ABS# 1.33 10x3/uL (1.32-3.57); LYMPHOCYTES 24.1 % (15-50); MCH 28.1 pg (26.0-34.0); MCHC 31.7 g/dL (31.0-37.0); MCV 88.5 fL (80.0-100.0); MEAN PLATELET VOLUME 8.4 fL (7.4-10.4); MONOCYTES 12.5 % (2-11); NEUTROPHIL ABS# 3.34 10x3/uL (1.78-5.38); NEUTROPHILS 60.6 % (40-80); PLATELET COUNT 199 10x3/uL (130-400); RBC 3.31 10x6/uL (4.20-6.10); RDW 13.9 % (11.5-14.5); WBC 5.5 10x3/uL (4.8-10.8)
[2020-07-07 06:39] LABS: ALBUMIN 2.9 g/dL (3.4-5.0); BILIRUBIN - TOTAL 0.48 mg/dL (0.2-1.3); CALCIUM 8.4 mg/dL (8.5-10.1); CREATININE - SERUM 1.8 mg/dL (0.6-1.3); MAGNESIUM - SERUM 2.3 mg/dL (1.8-2.4); PHOSPHOROUS 3.4 mg/dL (2.5-4.9); POTASSIUM - SERUM 5.1 mmol/L (3.5-5.1); PROTEIN - SERUM 6.3 g/dL (6.4-8.2)
[2020-07-07 06:45] LABS: ANION GAP 8.4 mmol/L (8-16); CARBON DIOXIDE 28.7 mmol/L (21.0-32.0)
--- NOTE | 2020-07-07 08:27 | NUR ---
ADMINISTERED PATIENT SCHEDULED MEDICATIONS WELL PRN MEDICATION, GAVE PATIENT PO PAIN MEDICATION. NO NEEDS VOICED AT THIS TIME. CONTINUE WITH PLAN OF CARE
[2020-07-07 08:55] VITALS: BP 122/57
[2020-07-07 12:37] VITALS: BP 132/61
--- NOTE | 2020-07-07 13:58 | NUR ---
REHAB PRESCREENING Rehab referral received and chart reviewed. Mr. Dick is a good candidate for acute inpatient rehab if he is agreeable to come. Thank you for this referral! Roxy García, KNOCKUP WORKER Rehab PD
--- NOTE | 2020-07-07 14:19 | NUR ---
I have reviewed this patient and I concur with the Shift Assessment completed by the Licensed Practical Nurse today this shift.
--- NOTE | 2020-07-07 15:38 | NUR ---
OT NOTE: PT DOING BETTER. REPORTS FEELING VERY SLEEPY THIS AFTERNOON. PT ABLE TO PERFORM BED MOB WITH MIN ASSIST; PT HAD PREVIOUSLY BEEN UP WITH PHYS THERAPY AND WAS TIRED. PROVIDED PT WITH DRINK REQUESTED. AT BEDSIDE GLENN GRAMAJO, OTR/L [phone]
--- NOTE | 2020-07-07 15:49 | NUR ---
OT NOTE: PT COMPLETED BED MOB TASKS WITH MIN A. PT COMPLETED ADL MOB WITH MIN A. PT COMPLETED SHAVING WITH SETUP. PT COMPLETED HAIR GROOMING WITH SETUP. PT COMPLETED FACE HYGIENE WITH SETUP. [phone] THANK YOU,KAT FROST
[2020-07-07 16:42] VITALS: BP 144/68
[2020-07-07 20:00] VITALS: BP 133/59
[2020-07-08] VITALS: BP 142/62
[2020-07-08 04:00] VITALS: BP 109/55
[2020-07-08 06:22] LABS: BASOPHILS 0.4 % (0-2); EOSINOPHILS 2.4 % (0-7); HEMATOCRIT 29.8 % (42.0-54.0); HEMOGLOBIN 9.5 g/dL (13.5-17.5); IMMATURE GRANULOCYTES 0.2 % (0-5); LYMPHOCYTE ABS# 1.25 10x3/uL (1.32-3.57); LYMPHOCYTES 23.1 % (15-50); MCH 28.1 pg (26.0-34.0); MCHC 31.9 g/dL (31.0-37.0); MCV 88.2 fL (80.0-100.0); MEAN PLATELET VOLUME 8.5 fL (7.4-10.4); MONOCYTES 12.4 % (2-11); NEUTROPHIL ABS# 3.33 10x3/uL (1.78-5.38); NEUTROPHILS 61.5 % (40-80); PLATELET COUNT 217 10x3/uL (130-400); RBC 3.38 10x6/uL (4.20-6.10); RDW 13.6 % (11.5-14.5); WBC 5.4 10x3/uL (4.8-10.8)
[2020-07-08 06:51] LABS: ALBUMIN 2.9 g/dL (3.4-5.0); CALCIUM 8.9 mg/dL (8.5-10.1); MAGNESIUM - SERUM 2.1 mg/dL (1.8-2.4); PHOSPHOROUS 2.7 mg/dL (2.5-4.9)
[2020-07-08 07:02] LABS: ANION GAP 36.8 mmol/L (8-16); CREATININE - SERUM 1.2 mg/dL (0.6-1.3); POTASSIUM - SERUM 4.3 mmol/L (3.5-5.1)
[2020-07-08 07:03] LABS: PROTEIN - SERUM 3.1 g/dL (6.4-8.2)
--- NOTE | 2020-07-08 08:07 | NUR ---
RESTING IN BED, NO DISTRESS NOTED, IV INFUSING, FOOT ELEVATED ON PILLOW, CONT TO MONITOR
[2020-07-08 08:46] LABS: BILIRUBIN - TOTAL 0.57 mg/dL (0.2-1.3); CARBON DIOXIDE 28.4 mmol/L (21.0-32.0)
[2020-07-08 09:16] VITALS: BP 138/67
[2020-07-08 14:22] VITALS: BP 116/55
[2020-07-08 18:32] VITALS: BP 110/62
[2020-07-08 21:25] VITALS: BP 139/58
[2020-07-09 00:55] VITALS: BP 119/70
[2020-07-09 05:41] VITALS: BP 149/73
[2020-07-09 05:58] LABS: BASOPHILS 0.3 % (0-2); EOSINOPHILS 2.6 % (0-7); HEMATOCRIT 29.2 % (42.0-54.0); HEMOGLOBIN 9.4 g/dL (13.5-17.5); IMMATURE GRANULOCYTES 0.1 % (0-5); LYMPHOCYTE ABS# 1.45 10x3/uL (1.32-3.57); LYMPHOCYTES 19.8 % (15-50); MCH 28.2 pg (26.0-34.0); MCHC 32.2 g/dL (31.0-37.0); MCV 87.7 fL (80.0-100.0); MEAN PLATELET VOLUME 8.5 fL (7.4-10.4); NEUTROPHIL ABS# 4.79 10x3/uL (1.78-5.38); NEUTROPHILS 65.2 % (40-80); PLATELET COUNT 236 10x3/uL (130-400); RBC 3.33 10x6/uL (4.20-6.10); RDW 13.6 % (11.5-14.5)
[2020-07-09 06:00] LABS: WBC 7.3 10x3/uL (4.8-10.8)
[2020-07-09 06:39] LABS: ALBUMIN 2.8 g/dL (3.4-5.0); ANION GAP 7.2 mmol/L (8-16); BILIRUBIN - TOTAL 0.33 mg/dL (0.2-1.3); CALCIUM 8.3 mg/dL (8.5-10.1); CREATININE - SERUM 1.2 mg/dL (0.6-1.3); MAGNESIUM - SERUM 1.9 mg/dL (1.8-2.4); PHOSPHOROUS 2.8 mg/dL (2.5-4.9); POTASSIUM - SERUM 4.2 mmol/L (3.5-5.1)
[2020-07-09 06:42] LABS: PROTEIN - SERUM 5.9 g/dL (6.4-8.2)
[2020-07-09 08:26] VITALS: BP 117/59
--- NOTE | 2020-07-09 08:30 | NUR ---
PT ALERT, ORIENTED AND EASILY AWAKENED. CL IN REACH. STATES PAIN IS A 7/10 ON THE PAIN SCALE. WCTM
[2020-07-09 11:55] VITALS: BP 149/70
--- NOTE | 2020-07-09 14:54 | NUR ---
IN ROOM. PT WATCHING NASCAR. STATED WHEN HIS NEXT PAIN MEDICATION WOULD BE. CL IN REACH. WCTM
[2020-07-09 16:54] VITALS: BP 126/58
[2020-07-10 06:15] VITALS: BP 120/60
[2020-07-10 06:17] LABS: BASOPHILS 0.3 % (0-2); HEMATOCRIT 29.6 % (42.0-54.0); HEMOGLOBIN 9.6 g/dL (13.5-17.5); IMMATURE GRANULOCYTES 0.4 % (0-5); LYMPHOCYTE ABS# 1.39 10x3/uL (1.32-3.57); LYMPHOCYTES 20.1 % (15-50); MCH 28.3 pg (26.0-34.0); MCHC 32.4 g/dL (31.0-37.0); MCV 87.3 fL (80.0-100.0); MEAN PLATELET VOLUME 8.7 fL (7.4-10.4); MONOCYTES 12.3 % (2-11); NEUTROPHIL ABS# 4.42 10x3/uL (1.78-5.38); NEUTROPHILS 63.9 % (40-80); PLATELET COUNT 254 10x3/uL (130-400); RBC 3.39 10x6/uL (4.20-6.10); RDW 13.6 % (11.5-14.5); WBC 6.9 10x3/uL (4.8-10.8)
[2020-07-10 06:32] LABS: ALBUMIN 2.8 g/dL (3.4-5.0); ANION GAP 8.9 mmol/L (8-16); BILIRUBIN - TOTAL 0.39 mg/dL (0.2-1.3); CALCIUM 8.3 mg/dL (8.5-10.1); CARBON DIOXIDE 29.4 mmol/L (21.0-32.0); CREATININE - SERUM 1.1 mg/dL (0.6-1.3); POTASSIUM - SERUM 4.3 mmol/L (3.5-5.1)
--- NOTE | 2020-07-10 07:38 | NUR ---
RESTING IN BED WITH EYES OPEN, ALERT AND ORIENTED. IV LOCATED TO RIGHT UPPER ARM CURRENTLY RUNNING 1/2NS @ 50 ML/HR. NO CURRENT S/S OF DISTRESS, DENIES CURRENT NEEDS, WILL CONT TO MONITOR.
[2020-07-10 09:03] VITALS: BP 139/59
[2020-07-10] MEDS ORDERED: PERCOCET 10-321 EAC1 PO (09:24)
[2020-07-10] MEDS ORDERED: ELIQUIS2.5 MG PO (09:24)
[2020-07-10] MEDS ORDERED: CEPHALEXIN500 M1 PO (09:25)
[2020-07-10] MEDS ORDERED: DULCOLAX STOOL100 MG PO (09:25)
--- NOTE | 2020-07-10 09:57 | MORECARE ---
CASE MANAGEMENT DISCHARGE SUMMARY PATIENT: NORMAN MONET UNIT: [id number] ADM DATE: 07/04/20 AGE: 70 : 50 SEX: M ROOM/BED: D.[facility] AUTHOR: JENNIFER,DOC PHYSICIAN: REFERRING PHYSICIAN: CHACHO CARRANZA MD DATE OF SERVICE: 07/10/20 Case Management Discharge Planning Summary DCP REVIEW SUMMARY ANTICIPATED D/C DATE: EXPECTED LOS : CASE STATUS: DCP Initiated INITIAL REVIEW: 07/05/2020 INITIAL REVIEWER: Sumaya Lynch FINAL DISCHARGE DISPOSITION: : FINAL REVIEWER: FINAL REVIEW DATE: LACE: UPDATED BY: [email or web address]: Fanta Mendoza on 07/05/20 14:58 CT QUESTION: ANSWER Length of Stay (Prior Admit): None Acute Admission: Inpatient Comorbidity: (1PT) DM no complications, Cerebrovascular Disease, Hx of ID, PVD, PUD Comorbidity Total Score 1 PT Emergency Room visits during previous 6 months: 0 Visits DCP Focus Questions & Answers DCP REV -DCP Review Added on: 07/10/20 9:53 am QUESTION: ANSWER DCP Screen High Risk Factors: : None Walking limitation: Patient stated self rated walking limitation present? : Yes Age: : 65 - 79 Prior living environment: : Lives with others Disability ranking: : Grade 4: Moderately severe disability DCP Evaluation Patient's ability to cope with chronic illness : d. No chronic illness Mental health screen: : No mental health history Would patient like to participate in any Care Coordination programs (if applicable): : Not applicable DCP Re-evaluation Would patient like to participate in any Care Coordination programs (if applicable): : Not applicable PATIENT: NORMAN MONET ENCOUNTER: [id number] MEDICAL RECORD#: [id number] ADMISSION DATE: 07/04/2020 DISCHARGE DATE: ATTENDING MD: : AGE: 70 MARITAL STATUS: M DC PLAN ID: [id number] FACILITY: [facility] PRINTED ON: 07/10/20 9:57 CT All edits/amendments must be made on the electronic document DICTATION DATE: 07/10/20956 POWERHOUSE MECHANIC: DM 07/10/20956 RPT#: [id number] DC DATE: STATUS: ADM IN [facility] [address] [place] [address] END OF REPORT
[2020-07-10 10:07] LABS: BILIRUBIN NEGATIVE (NEGATIVE); KETONE NEGATIVE (NEGATIVE); NITRITE NEGATIVE (NEGATIVE); UROBILINOGEN NORMAL mg/dL (< 2); WHITE CELLS - URINE 0-5 HPF (0-1)
[2020-07-10 10:08] LABS: BACTERIA FEW HPF (NONE SEEN); SQUAMOUS EPITHELIAL NONE SEEN HPF (0-4)
--- NOTE | 2020-07-10 12:00 | NUR ---
IV REMOVED CATH TIP INTACT. D/C HOME WITH VIA WHEELCHAIR AND HOSPITAL STAFF WITH NO CONCERNS.
--- NOTE | 2020-07-10 16:30 | MORECARE ---
CASE MANAGEMENT DISCHARGE SUMMARY PATIENT: NORMAN MONET UNIT: [id number] ADM DATE: 07/04/20 AGE: 70 : 50 SEX: M ROOM/BED: D.2214 AUTHOR: JENNIFER,DOC PHYSICIAN: REFERRING PHYSICIAN: CHACHO CARRANZA MD DATE OF SERVICE: 07/10/20 Case Management Discharge Planning Summary COMMENTS ENTERED DATE: 07/10/20 9:55 CT COMMENT TYPE: Discharge Planning REVIEWER: Sumaya Lynch CM met with patient at bedside after obtaining verbal consent. CM discussed availability / needs of home health, REHAB and medical equipment. Patient states has walker and wheelchair and lives at home with . Home health offered and patient declined. States he sees ortho Friday. Patient pcp is Dr. Landon. IMM signed and copy on chart. Patient to dc to home today and will pick him up. Cm to follow and assist as needed. DCP REVIEW SUMMARY ANTICIPATED D/C DATE: EXPECTED LOS : CASE STATUS: DCP Initiated INITIAL REVIEW: 07/05/2020 INITIAL REVIEWER: Sumaya Lynch FINAL DISCHARGE DISPOSITION: : FINAL REVIEWER: FINAL REVIEW DATE: LACE: UPDATED BY: [email or web address]: Fanta Mendoza on 07/05/20 14:58 CT QUESTION: ANSWER Length of Stay (Prior Admit): None Acute Admission: Inpatient Comorbidity: (1PT) DM no complications, Cerebrovascular Disease, Hx of RI, PVD, PUD Comorbidity Total Score 1 PT Emergency Room visits during previous 6 months: 0 Visits DCP Focus Questions & Answers DCP REV -DCP Review Added on: 07/10/20 9:53 am QUESTION: ANSWER DCP Screen High Risk Factors: : None Walking limitation: Patient stated self rated walking limitation present? : Yes Age: : 65 - 79 Prior living environment: : Lives with others Disability ranking: : Grade 4: Moderately severe disability DCP Evaluation Patient's ability to cope with chronic illness : d. No chronic illness Mental health screen: : No mental health history Would patient like to participate in any Care Coordination programs (if applicable): : Not applicable DCP Re-evaluation Would patient like to participate in any Care Coordination programs (if applicable): : Not applicable PATIENT: NORMAN MONET ENCOUNTER: [id number] MEDICAL RECORD#: [id number] ADMISSION DATE: 07/04/2020 DISCHARGE DATE: 07/10/2020 ATTENDING MD: YOON: 1950 AGE: 70 MARITAL STATUS: M DC PLAN ID: [id number] FACILITY: [facility] PRINTED ON: 07/10/20 16:30 CT All edits/amendments must be made on the electronic document DICTATION DATE: 07/10/20 163 WOODWORKING BENCH CARPENTER: MIQUEL 07/10/20 1630 RPT#: [id number] DC DATE:07/10/20 STATUS: DIS IN [facility] [address] [place] [address] END OF REPORT
--- NOTE | 2020-07-10 17:07 | NUR ---
OT NOTE: PT COMPLETED BUE AROM ACTIVITIES WITH FUNCTIONAL TASKS. PT COMPLETED UB HYGIENE WITH SETUP. PT DID WELL. [id number] THANK YOU,KAT FROST
== END 2020-07-10 12:01 | disposition home or self-care (01) | DRG 493 ==
LOC: D.ER 19:48 → D.MS 23:44
PROVIDERS: Emergency Medicine; Family Medicine; Orthopaedic Surgery; ADMIT Family Medicine; ATTEND Family Medicine
PROC: 0QSG04Z Reposition Right Tibia with Internal Fixation Device, Open Approach (ICD-10-PCS; principal; 2020-07-04 21:00)
DX: S82.891B Other fracture of right lower leg, initial encounter for open fracture type I or II (principal); E87.1 Hypo-osmolality and hyponatremia; N17.9 Acute kidney failure, unspecified; Z68.41 Body mass index [BMI] 40.0-44.9, adult; W19.XXXA Unspecified fall, initial encounter; D64.9 Anemia, unspecified; E66.01 Morbid (severe) obesity due to excess calories

== ENCOUNTER 2020-08-23 09:02 | Day surgery (SDC) | payer MEDICARE, OTHER ==
[~2020-08-23] VITALS: Ht 175.3 cm; Wt 133.8 kg
[~2020-08-23 09:02] MED LIST changes: +CEPHALEXIN500 M1 PO; +CIPRO500 MG; +DICLOFENAC SOD100 MG PO; +DULCOLAX STOOL100 MG PO; +LISINOPRIL-HCT1 EAC4 PO; +NEURONTIN 300300 MG PO; +PERCOCET 10-321 EAC1 PO
[2020-08-23 09:24] LABS: BASOPHILS 0.3 % (0-2); EOSINOPHILS 3.5 % (0-7); HEMATOCRIT 36.5 % (42.0-54.0); HEMOGLOBIN 11.7 g/dL (13.5-17.5); IMMATURE GRANULOCYTES 0.1 % (0-5); LYMPHOCYTE ABS# 1.54 10x3/uL (1.32-3.57); LYMPHOCYTES 21.5 % (15-50); MCH 27.2 pg (26.0-34.0); MCHC 32.1 g/dL (31.0-37.0); MCV 84.9 fL (80.0-100.0); MEAN PLATELET VOLUME 8.8 fL (7.4-10.4); MONOCYTES 10.7 % (2-11); NEUTROPHIL ABS# 4.58 10x3/uL (1.78-5.38); NEUTROPHILS 63.9 % (40-80); PLATELET COUNT 242 10x3/uL (130-400); RDW 13.2 % (11.5-14.5); WBC 7.2 10x3/uL (4.8-10.8)
[2020-08-23 09:33] LABS: ANION GAP 12.2 mmol/L (8-16); CALCIUM 9.4 mg/dL (8.5-10.1); CARBON DIOXIDE 28.8 mmol/L (21.0-32.0); CREATININE - SERUM 1.6 mg/dL (0.6-1.3)
[2020-08-23 11:12] VITALS: BP 114/71; Ht 175.3 cm; Wt 133.8 kg
--- NOTE | 2020-08-24 12:14 | OP ---
PATIENT NAME: NORMAN MONET MEDICAL RECORD: [id number] :50 LOCATION:[facility] ADMISSION DATE: SURGEON: SHAGGY STONE DO DATE OF OPERATION: 08/23/2020 PROCEDURE PERFORMED: Right lower extremity wound incision and debridement with Kerecis and wound VAC application. PREOPERATIVE DIAGNOSIS: Right lower extremity wound. POSTOPERATIVE DIAGNOSIS: Right lower extremity wound. INDICATION: Ms. Monet is a 70-year-old male who had an open right ankle fracture with a wound over the medial side approximately a month or so ago. He was doing well until the last couple of weeks he started to get just deterioration of the wound, not really dehiscence but the skin kind of where the open fracture was and was not full thickness by any means, but skin was not covering it, and in order to prevent a disaster infection, told him we would do the procedure. He was okay with that and was aware of the risks including infection, bleeding, damage to nerves or vessels, need for further surgery, possible amputation and he signed the consent. SURGEON: Shaggy Stone DO DESCRIPTION OF PROCEDURE: The patient was taken to the operative suite, laid in supine position, given general anesthetic and LMA was placed, given 3 grams of Ancef preoperatively. The right lower extremity was prepped and draped in sterile fashion. Timeout was performed, everyone was in agreement of the correct side, site, patient, and procedure. I took a 15 blade scalpel and debrided the wound and got bleeding edges around it, measured to be 6 cm x 1 cm x 2 mm deep. I then put a Kerecis in and sewed it in with a running 5-0 Monocryl. I then placed the VAC on top of it. He was then awakened and taken to recovery in stable condition. ESTIMATED BLOOD LOSS: Minimal. COMPLICATIONS: Minimal. TRANSINT:[id number] Voice Confirmation ID: [id number] DOCUMENT ID: [id number] SHAGGY STONE DO at 1214 CC: [id number] DICTATION DATE: 08/23/20 1344 WOODWORKING CRAFTSMAN: 08/23/20 2223 [facility] 08/23/20 [id number] [place] [address]
== END 2020-08-23 15:50 | disposition home or self-care (01) ==
LOC: D.OPS 09:02
PROVIDERS: Anesthesiology; ATTEND Orthopaedic Surgery
DX: S82.841E Displaced bimalleolar fracture of right lower leg, subsequent encounter for open fracture type I or II with routine healing (principal)

== ENCOUNTER → 2020-10-20 15:08 | Outpatient (CLI) | payer MEDICARE, OTHER ==
[2020-08-23 11:12] VITALS: BMI 43.6
== END | disposition home or self-care (01) ==
LOC: D.MRI 15:08
PROVIDERS: ATTEND Nurse Practitioner Family
DX: S92.901A Unspecified fracture of right foot, initial encounter for closed fracture (principal)